=== PATIENT | female | born 1960 | race Caucasian/White ===

== ENCOUNTER → 2020-12-01 10:16 | Outpatient (CLI) | payer OTHER, SELFPAY ==
--- NOTE | ~2020-12-01 | DEXA_ITS ---
Bone Density Report Name: Alondra Nicholson Age: 60 Sex: Female Ethnicity: White Date of : 1960 Indication: postmenopausal; screening for osteoporosis; Referring Provider: DAVID, RAVI Study: Bone densitometry was performed. Exam Date: December 01, 2020 Accession number: [id number] Bone Density: Region BMD T-score Z-score Classification AP Spine (L1-L4) 1.016 -0.3 1.2 Normal Femoral Neck (Left) 0.729 -1.1 0.2 Osteopenia Total Hip (Left) 0.889 -0.4 0.6 Normal Femoral Neck (Right) 0.678 -1.5 -0.2 Osteopenia Total Hip (Right) 0.857 -0.7 0.3 Normal Total Hip Mean 0.873 -0.6 0.5 Normal World Health Organization criteria for BMD impression classify patients as: Normal (T-score at or above -1.0), Osteopenia (T-score between -1.0 and -2.5), or Osteoporosis (T-score at or below -2.5). 10-year Fracture Risk(1): Major Osteoporotic Fracture 7.8% Hip Fracture 0.7% Reported Risk Factors: [place] (), Neck BMD=0.678, BMI=34.5 (1) FRAX(R) Version 3.08. Fracture probability calculated for an untreated patient. Fracture probability may be lower if the patient has received treatment. Clinical Information Provided by Patient: Patient maximum height was 64 Menopause Age: 50 No regular weight bearing exercise Drinks caffeinated beverages Onset of menses at age 12 Number of children 2 Impression: The patient has low bone mass, based on the Right Femoral Neck T-score. The patient has an estimated ten-year risk of hip fracture of 0.7% and an estimated ten-year risk of major fracture of 7.8%, based on the WHO FRAX algorithm. Discussion: BONE DENSITY IS LOW AT ONE OR MORE SKELETAL SITES. This patient's lowest T-score is low at one or more skeletal sites. It meets the World Health Organization's (WHO) criteria for ?low bone mass? (T-score between -1.0 and -2.5). The patient's 10-year risk of fracture as calculated by FRAX is less than the threshold where pharmacological therapy is recommended by the National Osteoporosis Foundation (NOF). However, all treatment decisions require clinical judgment and consideration of individual patient factors, including patient preferences, comorbidities, previous drug use, risk factors not captured in the FRAX model (e.g., frailty, falls, vitamin D deficiency, increased bone turnover, interval significant decline in bone density) and possible under or overestimation of fracture risk by FRAX. The patient should follow a healthful lifestyle (good nutrition with adequate calcium and vitamin D, and appropriate weight-bearing exercise). Follow-Up: Consider repeating this study in 2 to 3 years to reassess this patient's status, or sooner if there is some new clinical indication. Reported by: [facility] on 12/01/2020 10:48:00 AM.
--- NOTE | ~2020-12-01 | MM_ITS ---
EXAMINATION: MM screening jagdish BI w oj HISTORY: Screening mammogram TECHNIQUE: Craniocaudal and mediolateral oblique 3-D tomosynthesis images were obtained and synthetic 2-D images were generated. CAD analysis was submitted and interpreted. COMPARISON: No prior mammogram is available for comparison at this institution. BREAST PARENCHYMAL COMPOSITION: The breasts are almost entirely fatty. FINDINGS: Bilateral benign appearing intramammary lymph nodes. There is no evidence of suspicious mas s, calcification, or architectural distortion to suggest malignancy in either breast. There has been no suspicious interval change. IMPRESSION: 1. No mammographic evidence of malignancy. 2. Recommend routine screening mammography in one year. BI-RADS Category 2: Benign finding(s). Reviewed, dictated and finalized at location A. CTOR OF SUSTAINABLE DESIGN
== END ==
PROVIDERS: Visit Provider Nurse Practitioner
DX: Z12.31 Encounter for screening mammogram for malignant neoplasm of breast (principal); Z78.0 Asymptomatic menopausal state; Z13.820 Encounter for screening for osteoporosis; M85.852 Other specified disorders of bone density and structure, left thigh; M85.851 Other specified disorders of bone density and structure, right thigh
CPT/HCPCS: 77063; 77067; 77080

== ENCOUNTER → 2022-02-08 12:20 | Outpatient (CLI) | payer BC, SELFPAY ==
--- NOTE | ~2022-02-08 | MM_ITS ---
EXAMINATION: MM screening jagdish BI w oj HISTORY: Screening mammogram TECHNIQUE: Craniocaudal and mediolateral oblique 3-D tomosynthesis images were obtained and synthetic 2-D images were generated. CAD analysis was submitted and interpreted. COMPARISON: December 01, 2020 bilateral screening mammogram BREAST PARENCHYMAL COMPOSITION: The breasts are almost entirely fatty. FINDINGS: Bilateral axillary tail benign-appearing chronic lymph nodes. There is no evidence of suspi cious mass, calcification, or architectural distortion to suggest malignancy in either breast. There has been no suspicious interval change. IMPRESSION: 1. No mammographic evidence of malignancy. 2. Recommend routine screening mammography in one year. BI-RADS Category 2: Benign finding(s). Reviewed, dictated and finalized at location D.
== END ==
PROVIDERS: PCP Family Medicine; Visit Provider Nurse Practitioner
DX: Z12.31 Encounter for screening mammogram for malignant neoplasm of breast (principal)
CPT/HCPCS: 77063; 77067

== ENCOUNTER → 2023-03-28 10:29 | Outpatient (CLI) | payer BC, SELFPAY ==
--- NOTE | ~2023-03-28 | MM_ITS ---
EXAMINATION: MM screening jagdish BI w oj HISTORY: Screening mammogram TECHNIQUE: Craniocaudal and mediolateral oblique 3-D tomosynthesis images were obtained and synthetic 2-D images were generated. CAD analysis was submitted and interpreted. COMPARISON: 02/2022, 11/27/2020 bilateral screening mammogram examinations BREAST PARENCHYMAL COMPOSITION: The breasts are almost entirely fatty. FINDINGS: Stable benign-appearing axillary tail and axillary lymph nodes. There is no evidence of angela picious mass, calcification, or architectural distortion to suggest malignancy in either breast. Ther e has been no suspicious interval change. IMPRESSION: 1. No mammographic evidence of malignancy. 2. Recommend routine screening mammography in one year. BI-RADS Category 1: Negative Reviewed, dictated and finalized at location A.
== END ==
PROVIDERS: PCP Family Medicine; Visit Provider Nurse Practitioner
DX: Z12.31 Encounter for screening mammogram for malignant neoplasm of breast (principal)
CPT/HCPCS: 77063; 77067

== ENCOUNTER 2023-09-13 08:14 | Emergency (ER) | payer BC, SELFPAY ==
[2023-09-13 08:27] VITALS: BP 115/95; PULSE 101; RESP 16; TEMP 37.4; O2SAT 100
--- NOTE | 2023-09-13 08:29 | ED.URI ---
HPI - URI/Sore Throat General Chief Complaint: Upper Respiratory Infection Stated Complaint: CHILLS/BODY ACHES/NOT SLEEPING/COUGH/LIGHT HEADED Time Seen by Provider: 09/13/23 08:29 Source: patient and RN notes reviewed Mode of arrival: ambulatory Limitations: no limitations History of Present Illness HPI Narrative: 62 y/o female presented for c/o body aches, fatigue, and cough. Onset yesterday. Reports right ear feels clogged, had some lightheadedness, and decreased appetite. And stated she coughed so forcefully she spit up bile. Took NyQuil yesterday but only slept 2 hours, then up through the night coughing. Denies sob, wheezing, n/v/d/f/c. MD elicited complaint: cough Related Data Home Medications Medication Instructions Recorded Confirmed meloxicam 15 mg tablet 15 mg PO DAILY 02/15/22 09/13/23 terbinafine HCl 250 mg tablet 250 mg PO DAILY 02/21/23 09/13/23 Allergies Allergy/AdvReac Type Severity Reaction Status Date / Time No Known Allergies Allergy Verified 09/13/23 08:27 Review of Systems Review of Systems: CONSTITUTIONAL: Endorses malaise, body aches; denies chills, sweats, fever EYES: Denies visual changes, redness, or discharge ENT: Denies rhinorrhea, congestion, sinus pain, otalgia, sore throat CARDIOVASCULAR: Denies chest pain, palpitations, edema RESPIRATORY: Reports cough, post nasal drainage. 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 & 04/2018 - right knee [place] teeth extracted Family History Family History Father Family history of Alzheimer's disease Social History Social History Smoking status: Never smoker Second hand tobacco smoke exposure: No Alcohol intake: current Alcohol use details: consumes 12 pack of beer weekly Substance use: never Substance use type: does not use Lack of Transportation: No Lack of Food: Never True Current Housing: I Have Housing Concerned About Future Housing: No Difficulty Paying Gas/Electric Bills: No Difficulty Paying for Meds: No Currently Unemployed: No Difficulty w/ Childcare or Family Care: No Living arrangements: with family Gender identity (if verbalized by the patient): Female Sexual Orientation (if Verbalized by the Patient): Straight or Heterosexual Spiritual care concerns: No Agree to blood products: Yes Exam Narrative: GENERAL: well-appearing, nontoxic no acute distress. HEAD: Normocephalic EYES: PERRLA, conjunctivae clear ENT: Mucous membranes moist. TMs pearly cooley with dull light reflex bilaterally; no tragal tenderness. Oropharynx not erythematous without lesions or exudate, no drooling, no hoarseness, no trismus, uvula midline. No tripod positioning, muffled voice, soft palate or pharyngeal wall bulging NECK: Supple. No lymphadenopathy CHEST: Clear to auscultation, breath sounds equal. No wheezing, rhonchi, rales, or stridor. No respiratory distress, speaks in full sentences. HEART: Regular rate and rhythm. No murmur heard. SKIN: Warm, dry, no rash. NEURO: Alert and oriented x3. PSYCH: Normal mood and affect Course Course Emergency Course: Patient is aware of diagnosis, understands and agrees to treatment plan. Anticipatory guidance given. Patient agrees to follow-up as directed and is aware of reasons to seek care at the emergency department. Portions of this record may have been created with voice recognition softwar
== END 2023-09-13 08:57 | disposition home or self-care (01) ==
PROVIDERS: Emergency Provider Nurse Practitioner Family; PCP Family Medicine
DX: B34.9 Viral infection, unspecified (principal); Z20.822 Contact with and (suspected) exposure to COVID-19; E78.5 Hyperlipidemia, unspecified; K21.9 Gastro-esophageal reflux disease without esophagitis; M19.90 Unspecified osteoarthritis, unspecified site
CPT/HCPCS: 87426; 87804; 99213; C9803; G0463

== ENCOUNTER 2023-09-23 08:48 | Inpatient (IN) | payer BC, SELFPAY ==
[2023-09-23] VITALS (22 sets, daily range): BP systolic 139–170; BP diastolic 70–99; PULSE 80–102; RESP 16–20; TEMP 36.8–38.4; O2SAT 92–100
--- NOTE | ~2023-09-23 | XR_ITS ---
EXAMINATION: XR chest 1V portable 09/23/2023 10:38 INDICATION: Fatigue and fever. PROCEDURE: 2 view chest COMPARISON: 12/25/2018 FINDINGS: The lungs are clear. The cardiomediastinal silhouette is within normal limits. There are no pleural effusions. There is no pneumothorax suspected. IMPRESSION: 1: NO ACUTE CARDIOPULMONARY DISEASE. Reviewed, dictated and finalized at location A. LIER MANAGER
--- NOTE | 2023-09-23 09:45 | ED.FEVER ---
HPI - Fever General Chief Complaint: Fever Stated Complaint: fatigue bodyaches,chills and fever on and off 2wk Time Seen by Provider: 09/23/23 09:34 Source: patient Mode of arrival: ambulatory Limitations: no limitations History of Present Illness HPI Narrative: Alondra is a 62-year-old female patient presenting to the ER today with complaints of fatigue, cough, body aches, chills, fever off and on x 10 days. She reports she has seen urgent care and her PCP and diagnosed with viral syndrome. Was given prescription for Tessalon Perles for the cough. Related Data Home Medications Medication Instructions Recorded Confirmed meloxicam 15 mg tablet 15 mg PO DAILY 02/15/22 09/23/23 terbinafine HCl 250 mg tablet 250 mg PO DAILY 02/21/23 09/23/23 liraglutide 3 mg subcut DAILY 09/23/23 09/23/23 Allergies Allergy/AdvReac Type Severity Reaction Status Date / Time No Known Allergies Allergy Verified 09/23/23 16:24 Review of Systems Review of Systems: Pertinent positives per HPI. Patient denies any rash, headache, visual changes, dizziness, shortness of breath, chest pain, palpitations, nausea, vomiting, diarrhea, constipation, abdominal pain, or any urinary issues. 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 Code status: Full code. Smoking status: Never smoker Second hand tobacco smoke exposure: No Alcohol intake: never Alcohol use details: Twelve pack of beer a week. Substance use: never Substance use type: does not use Lack of Transportation: No Lack of Food: Never True Current Housing: I Have Housing Concerned About Future Housing: No Difficulty Paying Gas/Electric Bills: No Difficulty Paying for Meds: No Currently Unemployed: No Education: Don't Know Difficulty w/ Childcare or Family Care: No Living arrangements: with family Spiritual care concerns: No Agree to blood products: Yes Comments At the time of my signature, I reviewed and agree with the nursing past medical, surgical, social, and family history. There is no relevant family history pertinent to the patient complaint. Exam Narrative: General: Well-developed, well nourished, in no apparent distress Head: Normocephalic, atraumatic Eyes: Pupils equally round and reactive to light bilaterally, EOM intact, sclera and conjunctive clear, no discharge, lids normal Ears: TMs intact and clear, ear canals ceruminous, no drainage, grossly hearing normal. Nose: Nares patent, clear nasal discharge, no inflammation, no sinus tenderness. Mouth: Oral pharynx without lesions or masses, good dentition, MM dry. Neck: Supple, trachea midline, no enlargement of anterior or posterior cervical nodes, no thyroid masses or goiter palpable. Cardio: Regular rate and rhythm, s1 and s2 normal, no murmur appreciated. Resp: Clear to auscultation bilaterally, no rhonchi, rales, wheezing or rubs Course Course Emergency Course: Portions of this record may have been created with voice recognition software. Vital Signs Vital signs: Vital Signs Temperature 37.0 C 09/23/23 09:01 Pulse Rate 99 09/23/23 09:01 Respiratory Rate 16 09/23/23 09:01 Blood Pressure 170/97 H 09/23/23 09:01 Pulse Oximetry 98 09/23/23 09:01 Oxygen Delivery Room Air 09/23/23 09:01 Temperature 36.8 C
[2023-09-23 10:17] LABS: Influenza A QL RT-PCR Negative (Negative); Influenza B QL RT-PCR Negative (Negative); RSV RNA, RT-PCR Negative (Negative); SARS-CoV-2 RNA PCR Negative (Negative)
[2023-09-23 10:24] LABS: Basophils Absolute Auto 0.1 K/mm3 (0.0-0.1); Basophils Percent Auto 0.5 % (0.2-1.2); Eosinophils Percent Auto 0.3 % (0-4.4); Hematocrit 32.1 % (37.0-47.0); Hemoglobin 11.2 g/dL (12.0-15.0); Immature Granulocyte Absolute 0.09 K/mm3 (0.00-0.031); Immature Granulocyte Percent A 0.6 % (0-0.5); Lymphocytes Absolute Auto 1.53 K/mm3 (0.9-3.2); Lymphocytes Percent Auto 10.1 % (18.3-44.2); Mean Corpuscular HGB Conc 34.9 g/dl (32-36); Mean Corpuscular Hemoglobin 31.7 pg (26-34); Mean Corpuscular Volume 90.9 fl (80-100); Mean Platelet Volume 8.4 fl (7.4-10.4); Monocytes Absolute Auto 1.4 K/mm3 (0.1-0.6); Monocytes Percent Auto 9.3 % (2.6-8.5); Neutrophils Percent Auto 79.2 % (45.5-73.1); Platelet Count Result 548 k/mm3 (150-375); Red Blood Count 3.53 M/mm3 (4.2-5.4); Red Cell Distribution Width 12.2 % (11.5-14.5); White Blood Count 15.2 K/mm3 (4.5-10.0)
[2023-09-23 10:28] LABS: Appearance Urine Cloudy (Clear); Bacteria Urine 1+ /hpf; Bilirubin Urine Negative (Negative); Blood Urine Trace (Negative); Color Urine Yellow (Yellow); Glucose Urine UA Negative (Negative); Ketones Urine 1+ mg/dL (Negative); Leukocyte Esterase Ur Trace LEU/UL (Negative); Nitrate Urine Negative (Negative); Non Pathogenic Casts 0-2; Protein Urine 1+ mg/dL (Negative); Specific Grav Ur 1.014 (1.001-1.035); Squamous Epithelial Cell Urine Few /hpf (Few); WBC Urine 21-50 /hpf
[2023-09-23 10:33] LABS: Add Urine Microscopic? YES
[2023-09-23 10:36] LABS: Alanine Aminotransferase 19 U/L (6-35); Alkaline Phosphatase 56 U/L (38-126); Anion Gap 8 mmol/L (8-16); Aspartate Amino Transferase 28 U/L (14-36); Bilirubin,Total 0.8 mg/dL (0.2-1.3); Blood Urea Nitrogen 4 mg/dL (7-17); Calcium 8.8 mg/dL (8.4-10.2); Carbon Dioxide 24 mmol/L (22-30); Chloride 91 mmol/L (98-107); Estimated CRCL calculation 98 ml/min; Estimated Glomerular Filt Rate > 60; Glucose 99 mg/dL (65-110); Potassium 3.7 mmol/L (3.4-5.0); Sodium 123 mmol/L (137-145)
[2023-09-23] MEDS: SODIUM CHLORIDE 0.9% IV 1,000 ML 999 ML IV CONT (11:00)
[2023-09-23] MEDS: SODIUM CHLORIDE 0.9% IV 1,000 ML 75 ML IV CONT (12:33)
--- OUTSIDE RECORDS SUMMARY | 2023-09-23 15:45 | XMS_ITS ---
Care Plan - [facility] Created on: September 23, 2023 KASSANDRA RIVERA : 1960 Sex: Female Author Name Unknown Address [address] [place] [address] Phone Organization [facility] Address [address] [place] [address] Phone Care Team Providers Care Family Counselor Name Role Phone RICK DUNCAN MD Unavailable [phone] EULALIO TAMAYO MD Unavailable [phone]
--- OUTSIDE RECORDS SUMMARY | 2023-09-23 15:46 | XMS_ITS | Clinical Summary ---
Author Name Unknown Address [address] [place] [address] Phone Organization [facility] Address [address] [place] [address] Phone Care Team Providers Care Gasser Machine Operator Name Role Phone RICK DUNCAN MD Unavailable [phone] EULALIO TAMAYO MD Unavailable [phone] Reason for Visit and Chief Complaint [Patient Encounter] Problems Includes: Problems addressed during this encounter and other active Problems No Active Problems Plan of Treatment No Plan of Treatment Recorded Assessments Includes: Assessments from this encounter No Assessments Recorded Medical Equipment - Implanted Devices Includes: Current Devices No Medical Equipment Recorded Medications Includes: Medications discussed during this encounter and other current Medications Current Medications (continue as prescribed) SB Acid Police Surgeon raNITIdine 75 MG OR TABS 07/10/2012 Provider: Diagnosis: Medications Administered Includes: Administered Medications from this encounter No Administered Medications Recorded Results Includes: Results discussed during this encounter No Results Recorded For Specified Dates History of Present Illness Includes: History of Present Illness from this encounter No History of Present Illness Recorded Social History No Social History Recorded - Smoking Status Unknown Medical History Includes: Medical History addressed during this encounter No Medical History Recorded Family History Includes: Family History addressed during this encounter No Family His
--- OUTSIDE RECORDS SUMMARY | 2023-09-23 15:46 | XMS_ITS | Clinical Summary ---
Author Name Unknown Address [address] [place] [address] Phone Organization [facility] Address [address] [place] [address] Phone Care Team Providers Care Video Machines Mechanic Name Role Phone RICK DUNCAN MD Unavailable [phone] EULALIO TAMAYO MD Unavailable [phone] Reason for Visit and Chief Complaint gynecologic annual exam - The Chief Complaint is: Annual Problems Includes: Problems addressed during this encounter and other active Problems No Active Problems Plan of Treatment - Follow-up visit 1 year or as needed - Last Documented On 02/09/2016 2:46PM ; [facility] - Clinical summary provided to patient - Last Documented On 02/09/2016 2:46PM ; [facility] Instructions to patient Instructions for patient : B reast Self Exam discussed Last Documented On 6 2:30PM ; [facility] Lose weight Last Documented On 6 2:30PM ; [facility] Colonoscopy Handout given to patient Last Documented On 6 2:30PM ; [facility] Education and Decision Aids were provided during visit for: Patient Education: Daily magui cium and vitamin D Last Documented On 6 2:30PM ; [facility] Patient Education: weight be aring exercise
--- OUTSIDE RECORDS SUMMARY | 2023-09-23 15:46 | XMS_ITS | Clinical Summary ---
Author Name Unknown Address [address] [place] [address] Phone Organization [facility] Address [address] [place] [address] Phone Care Team Providers Care Inspector Electromechanical Name Role Phone RICK DUNCAN MD Unavailable [...] or as needed - Last Documented On 06/03/2018 2:36PM ; [facility] - Clinical summary provided to patient - Last Documented On 06/03/2018 2:36PM ; [facility] - Transition in care, clinical summary provided - Last Documented On 06/03/2018 2:36PM ; [facility] Instructions to patient Instructions for patient : B reast Self Exam discussed Last Documented On 8 2:14PM ; [facility] Lose weight Last Documented On 8 2:15PM ; [facility] Colonoscopy Handout given to patient Last Documented On 8 2:15PM ; [facility] Education and Decision Aids were provided during visit for: Patient Education: Daily magui cium and vitamin D Last Documented On 8 2:14PM ; [facility]
--- OUTSIDE RECORDS SUMMARY | 2023-09-23 15:46 | XMS_ITS | Clinical Summary ---
Author Name Unknown Address [address] [place] [address] Phone Organization [facility] Address [address] [place] [address] Phone Care Team Providers Care Cpr Instructor Name Role Phone RICK DUNCAN MD Unavailable [...] or as needed - Last Documented On 06/04/2019 9:27AM ; [facility] - Clinical summary provided to patient - Last Documented On 06/04/2019 9:27AM ; [facility] Per new ASCCP guidelines, pap was deferred today. This was d/w pt. and pt. is agreeable to this plan. - Last Documented On 06/04/2019 9:27AM ; [facility] Instructions to patient Instructions for patient : B reast Self Exam discussed Last Documented On 9 9:10AM ; [facility] Lose weight Last Documented On 9 9:13AM ; [facility] Colonoscopy Handout given to patient Last Documented On 9 9:13AM ; [facility] Education and Decision Aids were provided during visit for: Patient Education: Daily magui cium and vitamin D Last Documented On 9 9:1
--- OUTSIDE RECORDS SUMMARY | 2023-09-23 15:46 | XMS_ITS | Clinical Summary ---
Author Name Unknown Address [address] [place] [address] Phone Organization [facility] Address [address] [place] [address] Phone Care Team Providers Care Tread Booker Name Role Phone RICK DUNCAN MD Unavailable [phone] EULALIO TAMAYO MD Unavailable [phone] Reason for Visit and Chief Complaint * PHONE CALL Problems Includes: Problems addressed during this encounter and other active Problems No Active Problems Plan of Treatment No Plan of Treatment Recorded Assessments Includes: Assessments from this encounter No Assessments Recorded Medical Equipment - Implanted Devices Includes: Current Devices No Medical Equipment Recorded Medications Includes: Medications discussed during this encounter and other current Medications Current Medications (continue as prescribed) SB Acid Insurance Agent raNITIdine 75 MG OR TABS 07/10/2012 Provider: [...] History addressed during this encounter No Family History Re
--- NOTE | 2023-09-23 16:13 | ADMGEN ---
This patient, Alondra Nicholson, was admitted to [facility] Surg Room 321-01. Patient/family oriented to hospital policies and general routines including ID bracelet, bed and alarms, visiting hours, pain management, procedures, bathroom and other care routines, personal items, smoking policy, room service/diet, and visiting hours. Information on how to activate the Rapid Response Team has been discussed. Patient/Family are encouraged to report perceived risks to care and to ask questions if they do not understand what they are told or what they should do.
--- NOTE | 2023-09-23 17:07 | PM.IMHP ---
H&P: HPI History of Present Illness Date/Time: 09/23/23 18:30 Chief Complaint: Multiple complaints. Narrative: This is a 62-year-old female with gastroesophageal reflux disease and osteoarthritis who presented to the emergency department via private vehicle for evaluation of multiple complaints. The patient provides the following history. She has not been feeling well for upwards of 2 weeks with generalized malaise, fatigue, body aches, chills, dry cough, and intermittent fever. She saw her primary care provider this past Sunday at which time she tested negative for COVID and influenza. She was told that she likely had a virus which would need to run its course. Unfortunately she is not really feeling any better. Her appetite has been good and she denies nausea, vomiting, and diarrhea. She also denies dysuria, urinary urgency, hesitancy, and frequency. No abdominal pain or low back pain. In the ED: She was afebrile on arrival. Blood pressures have been a bit elevated in the 150 systolic. Labs were significant for a WBC count of 15.2, hemoglobin 11.2, sodium 123, chloride 91, BUN 4, creatinine 0.50. Interventions thus far include 1 L normal saline and 1 g ceftriaxone. She is being admitted in this setting for further workup of hyponatremia. With further questioning she does mention that her sodium has been low occasionally throughout the years. She does drink quite a bit of water, upwards of a gal a day she has done so for many years. She has perhaps 6 beers on the weekend but is not a daily drinker. She is not on any diuretics at home. She was recently started back on Saxenda for weight loss but again she reports that she eats and drinks as per usual. Review of Systems Review of Systems: Twelve systems were reviewed and are negative except for as per HPI. 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 Code status: Full code. Smoking status: Never smoker Second hand tobacco smoke exposure: No Alcohol intake: never Alcohol use details: Twelve pack of beer a week. Substance use: never Substance use type: does not use Lack of Transportation: No Lack of Food: Never True Current Housing: I Have Housing Concerned About Future Housing: No Difficulty Paying Gas/Electric Bills: No Difficulty Paying for Meds: No Currently Unemployed: No Education: Don't Know Difficulty w/ Childcare or Family Care: No Living arrangements: with family Spiritual care concerns: No Agree to blood products: Yes Meds Home Medications and Allergies Home Medications Medication Instructions Recorded Confirmed Type meloxicam 15 mg tablet 15 mg PO DAILY 02/15/22 09/23/23 History omeprazole 40 mg capsule,delayed 40 mg PO DAILY #90 caps 08/01/22 09/23/23 Rx release terbinafine HCl 250 mg tablet 250 mg PO DAILY 02/21/23 09/23/23 History pen needle, diabetic 32 gauge x #100 ea 06/28/23 09/23/23 Rx 5/32 (BD Bebe 2nd Gen Pen Needle) benzonatate 200 mg capsule 200 mg PO TID PRN cough #20 caps 09/18/23 09/23/23 Rx liraglutide 3 mg subcut DAILY 09/23/23 09/23/23 History Allergies Allergy/AdvReac Type Severity Reaction Status Date / Time No Known Allergies Allergy Verified 09/23/23 16:24 Vital Signs Vital Signs - 24 hr 09/23/23 09:01 09/23/23 09:30 09/23/23 10:00 Temperat
[2023-09-23 17:57] LABS: Anion Gap 7 mmol/L (8-16); Blood Urea Nitrogen 5 mg/dL (7-17); Calcium 8.6 mg/dL (8.4-10.2); Carbon Dioxide 27 mmol/L (22-30); Chloride 93 mmol/L (98-107); Estimated CRCL calculation 98 ml/min; Estimated Glomerular Filt Rate > 60; Glucose 102 mg/dL (65-110); Magnesium 1.8 mg/dL (1.6-2.3); Potassium 3.3 mmol/L (3.4-5.0); Sodium 127 mmol/L (137-145)
[2023-09-23 18:00] LABS: CRP 8.2 mg/dL (<1.0)
[2023-09-23 18:12] LABS: Procalcitonin 0.1 ng/mL
[2023-09-23] MEDS: ACETAMINOPHEN 325 MG TABLET 650 MG PO (23:09)
--- NOTE | 2023-09-23 23:23 | PC.NURSE ---
urine sample sent to lab for analysis cr, osmolarity, and random NA
[2023-09-23 23:29] LABS: Sodium 125 mmol/L (137-145)
[2023-09-23 23:31] LABS: Creatinine Urine 29.3 mg/dL
[2023-09-23 23:33] LABS: Sodium Urine Random 89 meq/L
[2023-09-24] VITALS (10 sets, daily range): BP systolic 118–158; BP diastolic 79–96; PULSE 76–78; RESP 16–20; TEMP 36.2–37.5; O2SAT 100
[2023-09-24] MEDS: POTASSIUM CHLORIDE 20 MEQ ER TABLET PO (00:10)
[2023-09-24 06:35] LABS: Hemoglobin 10.5 g/dL (12.0-15.0); Mean Corpuscular HGB Conc 33.9 g/dl (32-36); Mean Corpuscular Volume 91.4 fl (80-100); Mean Platelet Volume 8.1 fl (7.4-10.4); Platelet Count Result 504 k/mm3 (150-375); Red Blood Count 3.39 M/mm3 (4.2-5.4); Red Cell Distribution Width 12.2 % (11.5-14.5); White Blood Count 10.3 K/mm3 (4.5-10.0)
[2023-09-24 06:45] LABS: Anion Gap 6 mmol/L (8-16); Blood Urea Nitrogen 3 mg/dL (7-17); Calcium 8.9 mg/dL (8.4-10.2); Carbon Dioxide 26 mmol/L (22-30); Chloride 98 mmol/L (98-107); Estimated CRCL calculation 98 ml/min; Estimated Glomerular Filt Rate > 60; Glucose 97 mg/dL (65-110); Magnesium 1.9 mg/dL (1.6-2.3); Potassium 3.8 mmol/L (3.4-5.0); Sodium 130 mmol/L (137-145)
[2023-09-24] MEDS: ENOXAPARIN 40 MG/0.4 ML SYRINGE SUB-Q (08:35)
[2023-09-24] MEDS: PANTOPRAZOLE 40 MG TABLET PO ×2 (08:35→20:42)
--- NOTE | 2023-09-24 08:39 | PM.IMPN ---
Progress Note: A&P Assessment and Plan (1) Urinary tract infection: Code(s): N39.0 - Urinary tract infection, site not specified Status: Acute Assessment and Plan: 09/24/23: UA revealing 1+ protein, 1+ ketones, 2.0 urine urobilinogen, trace leukocytes, 3-5 urine RBC's, 21-50 urine WBC's, 1+ bacteria Urine and blood cultures were obtained and pending On Rocephin (2) Hyponatremia: Code(s): E87.1 - Hypo-osmolality and hyponatremia Status: Acute Assessment and Plan: 09/24/23: Na+ 130, Chloride 98 1LNS given in the ER Currently on fluid restrictions Urine osmolarity pending Urine sodium 89, urine creatinine 29.3 Patient did state that she drinks 2 beers a day on a regular basis which could contribute to her low Na+ level Continue to trend labs, will check liver enzymes tomorrow. (3) GERD without esophagitis: Code(s): K21.9 - Gastro-esophageal reflux disease without esophagitis Status: Acute Assessment and Plan: 09/24/23: Protonix ordered Time Spent With Patient Time with patient: Greater than 35 minutes Subjective Date/time seen: 09/24/23 08:39 Interval history: This is a 62 year old female who presented to the hospital on 09/23/23 for evaluation of multiple complaints. Patient reports not feeling well for 2 weeks with associated malaise, fatigue, chills, body aches, cough, and fever. She was seen by her PCP this past Sunday and was tested for COVID and influenza which was negative. Her symptoms have not resolved so she presented to the hospital for further evaluation. Work up in the hospital included a chest x-ray which was negative. Labs revealed WBC 15.2, absolute neutrophil count of 12.0, Na+ 123, Chloride 91, BUN 4, Creatinine 0.5, CRP 8.2, TSH 1.34, proCal 0.1. UA revealed 1+ protein, 1+ ketones, 2.0 urine urobili, trace leukocytes, 3-5 urine RBC's, 21-50 urine WBC's, 1+ bacteria. Urine and blood cultures were obtained. She was given 20 meq of KCL, 1L NS, given a dose of Tylenol, and started on Rocephin. On examination today patient is alert and oriented x4, sitting on side of bed with family at the bedside. VSS, she had a T-max of 101.2 over night, she is currently on room air. She denies any urinary complaints, nausea, vomiting, diarrhea, abdominal pain, shortness of breath, or chest pain. Labs today reveal WBC 10.3, hgb 10.5, hct 31.0, Na+ 130, BUN 3, Creatinine 0.50, BG ranging 97-102, mag 1.9. Urine and blood cultures are currently pending. Urine osmolarity pending. Patient did state that she drinks beer on a daily basis. She states that she has two 12oz cans a day. This can contribute to her low Na+. Will check liver studies tomorrow. Review of Systems Review of Systems: Twelve systems were reviewed and are negative except for as per HPI. Constitutional: Constitutional: Reports as per HPI and Reports no additional constitutional complaints Eyes: Eyes: Reports as per HPI and Reports no additional eye complaints ENT: Reports system reviewed and no additional complaints, except as documented and Reports as per HPI Cardiovascular: Cardiovascular: Reports as per HPI and Reports no additional cardiovascular complaints Respiratory: Respiratory: Reports as per HPI and Reports no additional respiratory complaints Gastrointestinal: Gastrointestinal: Reports as per HPI and Reports no additional gastrointestinal complaints Genitourinary: Genitourinary: Reports no additional female genitourinary complaints and Reports as per HPI Musculoskeletal: Musculoskeletal: Reports no additional musculoskeletal complaints and Reports as per HPI Integumentary/Breasts: Skin/Breast: Reports system reviewed and no additional complaints, except as docu and Reports as per HPI Neurologic: Reports system reviewed and no additional complaints, except as documented and Reports as per HPI Psychiatric: Psychiatric: Reports no additional psychiatric complaints and Reports as p
[2023-09-24] MEDS: MELOXICAM 7.5 MG TABLET 15 MG PO (11:14)
[2023-09-25 06:00] VITALS: BP 158/96; PULSE 82; RESP 18; TEMP 36.7; O2SAT 96
[2023-09-25 06:37] LABS: Basophils Absolute Auto 0.1 K/mm3 (0.0-0.1); Eosinophils Percent Auto 0.4 % (0-4.4); Hematocrit 32.9 % (37.0-47.0); Hemoglobin 11.1 g/dL (12.0-15.0); Immature Granulocyte Absolute 0.07 K/mm3 (0.00-0.031); Immature Granulocyte Percent A 0.9 % (0-0.5); Lymphocytes Absolute Auto 2.32 K/mm3 (0.9-3.2); Mean Corpuscular HGB Conc 33.7 g/dl (32-36); Mean Corpuscular Hemoglobin 31.1 pg (26-34); Mean Corpuscular Volume 92.2 fl (80-100); Mean Platelet Volume 8.3 fl (7.4-10.4); Monocytes Absolute Auto 0.8 K/mm3 (0.1-0.6); Monocytes Percent Auto 10.3 % (2.6-8.5); Neutrophils Absolute Auto 4.7 K/mm3 (1.3-6.7); Neutrophils Percent Auto 58.4 % (45.5-73.1); Platelet Count Result 571 k/mm3 (150-375); Red Blood Count 3.57 M/mm3 (4.2-5.4); Red Cell Distribution Width 12.2 % (11.5-14.5)
[2023-09-25 06:48] LABS: Alanine Aminotransferase 24 U/L (6-35); Alkaline Phosphatase 65 U/L (38-126); Anion Gap 7 mmol/L (8-16); Aspartate Amino Transferase 23 U/L (14-36); Bilirubin,Total 0.4 mg/dL (0.2-1.3); Blood Urea Nitrogen 7 mg/dL (7-17); Calcium 9.4 mg/dL (8.4-10.2); Carbon Dioxide 25 mmol/L (22-30); Chloride 98 mmol/L (98-107); Estimated CRCL calculation 83 ml/min; Estimated Glomerular Filt Rate > 60; Glucose 97 mg/dL (65-110); Potassium 3.9 mmol/L (3.4-5.0); Sodium 130 mmol/L (137-145)
[2023-09-25] MEDS: MELOXICAM 7.5 MG TABLET 15 MG PO (07:49)
[2023-09-25] MEDS: PANTOPRAZOLE 40 MG TABLET PO (07:49)
[2023-09-25] MEDS: ENOXAPARIN 40 MG/0.4 ML SYRINGE SUB-Q (07:50)
[2023-09-25 08:00] VITALS: BP 128/70; BP 129/70; BP 129/76; O2SAT 96
[2023-09-25 14:00] VITALS: BP 129/76; PULSE 79; RESP 16; TEMP 36.7; O2SAT 99
--- NOTE | 2023-09-25 14:22 | PM.DS ---
DS: Admitting Diagnosis Discharge Date 09/25/23 Admitting Diagnosis UTI hyponatremia GERD DS: Discharge Diagnosis Discharge Diagnosis (1) Urinary tract infection: Code(s): N39.0 - Urinary tract infection, site not specified Status: Acute (2) Hyponatremia: Code(s): E87.1 - Hypo-osmolality and hyponatremia Status: Acute (3) GERD without esophagitis: Code(s): K21.9 - Gastro-esophageal reflux disease without esophagitis Status: Acute DS: Summary Hospital Course Reason for hospitalization: UTI hyponatremia Hospital Course: This is a 62 year old female who presented to the hospital on 09/23/23 for evaluation of multiple complaints. Patient reports not feeling well for 2 weeks with associated malaise, fatigue, chills, body aches, cough, and fever. She was seen by her PCP this past Sunday and was tested for COVID and influenza which was negative. Her symptoms have not resolved so she presented to the hospital for further evaluation. Work up in the hospital included a chest x-ray which was negative. Labs revealed WBC 15.2, absolute neutrophil count of 12.0, Na+ 123, Chloride 91, BUN 4, Creatinine 0.5, CRP 8.2, TSH 1.34, proCal 0.1. UA revealed 1+ protein, 1+ ketones, 2.0 urine urobili, trace leukocytes, 3-5 urine RBC's, 21-50 urine WBC's, 1+ bacteria.She was given 20 meq of KCL, 1L NS, given a dose of Tylenol, and started on Rocephin. Urine culture showing E. coli in the urine. Sensitivities are back. Rocephin was changed to Cefdinir. On examination today patient is alert and oriented x4, sitting on side of bed. VSS, she is afebrile, currently on room air. Labs showing Na+ level of 130 likely due to alcohol intake, her preference is beer. WBC 8.0 today. She will be discharged on 5 more days of Cefdinir and will need to follow up with PCP in 1 week. Final diagnosis: Urinary tract infection and hyponatremia Status at Discharge Cognitive/behavioral status at discharge: Alert and oriented x3 Functional status at discharge: independent ambulation Overall status at discharge: patient is progressing back to baseline Time Spent with Patient Time attestation: Total time spent providing and/or coordinating discharge services: Time spent: Less than 30 minutes Exam Narrative: General: In no acute distress, well nourished Head: atraumatic, no encephalopathy Eyes: EOMI, PERRLA, sclera clear ENT: moist mucous membranes, nasal passages clear Neck: supple, no JVD, no adenopathy, trachea midline Cardiac: Normal S1 and S2. No murmur, gallops or friction rubs, peripheral pulses intact. Respiratory: Lungs clear to auscultation, no adventitious lung sounds Gastrointestinal: soft, non-distended, non-tender, normoactive bowel sounds. : voiding without difficulty. No symptoms noted. Extremities: moves all extremities well, no edema, good ROM, strength 5/5 Skin: clean, dry, intact. No wounds or lesions. Neuro: Alert and oriented x4, cranial nerves intact, no neuro deficits. Psych: normal mood, normal affect, interactive DS: Data Data Completed and Pending Completed studies during hospitalization: Chest x-ray Pending studies at discharge: Blood cultures x2 showing no growth day 2 Labs on day of discharge: Labs from last 24 hours 09/25/23 06:16 WBC 8.0 RBC 3.57 L Hgb 11.1 L Hct 32.9 L MCV 92.2 MCH 31.1 MCHC 33.7 RDW 12.2 Plt Count 571 H MPV 8.3 Immature Gran % (Auto) 0.9 H Neut % (Auto) 58.4 Lymph % (Auto) 29.0 Kerr % (Auto) 10.3 H Eos % (Auto) 0.4 Baso % (Auto) 1.0 Lymph # (Auto) 2.32 Kerr # (Auto) 0.8 H Eos # (Auto) 0.0 Baso # (Auto) 0.1 Abs Immat Gran (auto) 0.07 H Absolute Neuts (auto) 4.7 Absolute Nucleated RBC 0.0 Nucleated RBC % 0.0 Sodium 130 L Potassium 3.9 Chloride 98 Carbon Dioxide 25 Anion Gap 7 L BUN 7 Creatinine 0.60 L Estim Creat Clear Calc 83 Estimated GFR > 60 Glucose 97 Calcium 9.4 Total Bilirubin 0.4 AST 23 ALT 24
[2023-09-26 13:20] LABS: Osmolality, Urine 238 mOsm/kg (50-1200)
== END 2023-09-25 16:01 | disposition home or self-care (01) | DRG 690 ==
LOC: ANHED 12:05 → ANH3MEDSUR 15:49
PROVIDERS: Emergency Medicine; Physician Assistant; Admitting Provider Internal Medicine; Emergency Provider Nurse Practitioner Family; PCP Family Medicine; Visit Provider Nurse Practitioner Acute Care
DX: N39.0 Urinary tract infection, site not specified (principal); E87.1 Hypo-osmolality and hyponatremia; E78.5 Hyperlipidemia, unspecified; K21.9 Gastro-esophageal reflux disease without esophagitis; R91.1 Solitary pulmonary nodule; B96.20 Unspecified Escherichia coli [E. coli] as the cause of diseases classified elsewhere; Z96.653 Presence of artificial knee joint, bilateral; Z20.822 Contact with and (suspected) exposure to COVID-19
CPT/HCPCS: 36415; 71045; 80048; 80053; 81001; 82570; 83735; 83930; 83935; 84145; 84295; 84300; 84443; 85025; 85027; 86140; 87040; 87077; 87086; 87186; 87637; 96360; 99285; A9270; J0696; J1650; J7030

== ENCOUNTER 2024-02-14 11:11 | Outpatient (CLI) | payer BC, SELFPAY ==
--- NOTE | ~2024-02-14 | XR_ITS ---
EXAMINATION: XR bone survey comp/metastic DATE: 02/14/2024 11:50 INDICATION: Plasma cell disorder. TECHNIQUE: 30 views of a skeletal survey were obtained. COMPARISON: Chest single view 09/23/23 FINDINGS: There is no pneumonia, pleural effusion, or pneumothorax. The heart size is normal. There i s severe cervical, thoracic, and lumbar spondylosis. There are bilateral knee arthroplasties in near- anatomic alignment. IMPRESSION: 1. No evidence of multiple myeloma. Reviewed, dictated and finalized at location A.
== END 2024-02-14 11:12 | disposition home or self-care (01) ==
LOC: ANHIMG 11:12
PROVIDERS: PCP Family Medicine; Visit Provider Internal Medicine Hematology & Oncology
DX: D72.9 Disorder of white blood cells, unspecified (principal)
CPT/HCPCS: 77075

== ENCOUNTER 2024-05-06 13:10 | Outpatient (CLI) | payer BC, SELFPAY ==
--- NOTE | ~2024-05-06 | MM_ITS ---
EXAMINATION: MM screening [facility] BI w oj HISTORY: Screening TECHNIQUE: Craniocaudal and mediolateral oblique 3-D tomosynthesis images were obtained and synthetic 2-D images were generated. CAD analysis was submitted and interpreted. COMPARISON: Comparison to multiple prior studies sequentially, with oldest reviewed study dated 12/01. BREAST PARENCHYMAL COMPOSITION: Not dense: There are scattered areas of fibroglandular density. FINDINGS: There is no evidence of suspicious mass, calcification, or architectural distortion to sugg est malignancy in either breast. There has been no suspicious interval change. IMPRESSION: 1. No mammographic evidence of malignancy. 2. Recommend routine screening mammography in one year. BI-RADS Category 1: Negative Reviewed, dictated and finalized at location B.
== END 2024-05-06 13:11 ==
PROVIDERS: PCP Family Medicine; Visit Provider Nurse Practitioner
DX: Z12.31 Encounter for screening mammogram for malignant neoplasm of breast (principal)
CPT/HCPCS: 77063; 77067

== ENCOUNTER 2025-04-21 11:04 | Outpatient (CLI) | payer OTHER, SELFPAY ==
--- NOTE | ~2025-04-21 | DEXA_ITS ---
Bone Density Report Name: KASSANDRA RIVERA Age: 64 Sex: Female Ethnicity: White Date of : 1960 Indication: postmenopausal; screening for osteoporosis; height loss; Referring Provider: DAVID, RAVI Study: Bone densitometry was performed. Exam Date: April 21, 2025 Accession number: [id number] Bone Density: Region BMD T-score Z-score Classification AP Spine(L1-L4) 1.076 0.3 2.1 Normal Femoral Neck (Left) 0.739 -1.0 0.5 Normal Total Hip (Left) 0.881 -0.5 0.8 Normal Femoral Neck (Right) 0.677 -1.5 0.0 Osteopenia Total Hip (Right) 0.881 -0.5 0.8 Normal Total Hip Mean 0.881 -0.5 0.8 Normal World Health Organization criteria for BMD impression classify patients as: Normal (T-score at or above -1.0), Osteopenia (T-score between -1.0 and -2.5), or Osteoporosis (T-score at or below -2.5). 10-year Fracture Risk(1): Major Osteoporotic Fracture 8.7% Hip Fracture 0.9% Reported Risk Factors: [place] (), Neck BMD=0.677, BMI=31.1 (1) FRAX(R) Version 3.08. Fracture probability calculated for an untreated patient. Fracture probability may be lower if the patient has received treatment. Previous Exams: -- Region Exam Age BMD T-score BMD Change BMD Change Date g/cm2 vs Baseline vs Previous -- AP Spine (L1-L4) 04/21/2025 64 1.076 0.3 5.9%* 5.9%* 12/01/2020 60 1.016 -0.3 Total Hip(Left) 04/21/2025 64 0.881 -0.5 -0.9% -0.9% 12/01/2020 60 0.889 -0.4 Total Hip(Right) 04/21/2025 64 0.881 -0.5 2.8% 2.8% 12/01/2020 60 0.857 -0.7 -- *Denotes significance at 95% confidence level, LSC for AP Spine = 0.022 g/cm2, LSC for Total Hip = 0.027 g/cm2 Clinical Information Provided by Patient: Patient maximum height was 64 Menopause Age: 50 Drinks caffeinated beverages Onset of menses at age 12 Number of children 2 Impression: The patient has low bone mass, based on the Right Femoral Neck T-score. The patient has an estimated ten-year risk of hip fracture of 0.9% and an estimated ten-year risk of major fracture of 8.7%, based on the WHO FRAX algorithm. No significant bone loss was observed. Discussion: BONE DENSITY IS LOW AT ONE OR MORE SKELETAL SITES. This patient's lowest T-score is low at one or more skeletal sites. It meets the World Health Organization's (WHO) criteria for ?low bone mass? (T-score between -1.0 and -2.5). The patient's 10-year risk of fracture as calculated by FRAX is less than the threshold where pharmacological therapy is recommended by the National Osteoporosis Foundation (NOF). However, all treatment decisions require clinical judgment and consideration of individual patient factors, including patient preferences, comorbidities, previous drug use, risk factors not captured in the FRAX model (e.g., frailty, falls, vitamin D deficiency, increased bone turnover, interval significant decline in bone density) and possible under or overestimation of fracture risk by FRAX. The patient should follow a healthful lifestyle (good nutrition with adequate calcium and vitamin D, and appropriate weight-bearing exercise). Follow-Up: Consider repeating this study in 2 to 3 years to reassess this patient's status, or sooner if there is some new clinical indication. Reported by: VICTORINA on 04/21/2025 11:19:00 AM. Reviewed, dictated and finalized at location A.
== END 2025-04-21 11:05 | disposition home or self-care (01) ==
LOC: MICIMG 11:05
PROVIDERS: PCP Family Medicine; Visit Provider Nurse Practitioner
DX: M85.89 Other specified disorders of bone density and structure, multiple sites (principal); Z78.0 Asymptomatic menopausal state; Z13.820 Encounter for screening for osteoporosis
CPT/HCPCS: 77080

== ENCOUNTER 2025-07-30 11:46 | Outpatient (CLI) | payer OTHER, SELFPAY ==
--- NOTE | ~2025-07-30 | MM_ITS ---
EXAMINATION: MM screening [facility] BI w oj HISTORY: Screening TECHNIQUE: Craniocaudal and mediolateral oblique 3-D tomosynthesis images were obtained and synthetic 2-D images were generated. CAD analysis was submitted and interpreted. COMPARISON: Comparison to multiple prior studies sequentially, with oldest reviewed study dated 12/01/2020. BREAST PARENCHYMAL COMPOSITION: Not dense: There are scattered areas of fibroglandular density. FINDINGS: There is no evidence of suspicious mass, calcification, or architectural distortion to suggest malignancy in either breast. There has been no suspicious interval change. IMPRESSION: 1. No mammographic evidence of malignancy. 2. Recommend routine screening mammography in one year. BI-RADS Category 1: Negative Reviewed, dictated and finalized at location O.
== END 2025-07-30 11:47 | disposition home or self-care (01) ==
LOC: MICIMG 11:47
PROVIDERS: PCP Student in an Organized Health Care Education/Training Program; Visit Provider Nurse Practitioner
DX: Z12.31 Encounter for screening mammogram for malignant neoplasm of breast (principal)
CPT/HCPCS: 77063; 77067

== ENCOUNTER 2025-08-18 12:45 | Outpatient (CLI) | payer OTHER, SELFPAY ==
--- OUTSIDE RECORDS SUMMARY | 2025-08-18 12:49 | XMS_ITS | Clinical Summary ---
Author Organization [facility] Address [address] [place] [address] Phone Care Team Providers Care Overhead Worker Name Role Phone RICK DUNCAN MD Unavailable [phone] EULALIO TAMAYO MD Unavailable [phone] Reason for Visit and Chief Complaint gynecologic annual exam - The Chief Complaint is: Annual Problems Includes: Problems addressed during this encounter and other active Problems No Active Problems Plan of Treatment - Follow-up visit 1 year or as needed - Last Documented On 06/04/2019 9:27AM ; [facility] - Clinical summary provided to patient - Last Documented On 06/04/2019 9:27AM ; [facility] Per new ASCCP guidelines, pap was deferred today. This was d/w pt. and pt. is agreeable to this plan. - Last Documented On 06/04/2019 9:27AM ; [facility] Instructions to patient Instructions for patient : B reast Self Exam discussed Last Documented On 9 9:10AM ; [facility] Lose weight Last Documented On 9 9:13AM ; [facility] Colonoscopy Handout given to patient Last Documented On 9 9:13AM ; [facility] Education and Decision Aids were provided during visit for: Patient Education: Daily magui cium and vitamin D Last Documented On 9 9:10AM ; [facility] Patient Education: weight be aring exercise Last Documented On 9 9:10AM ; [facility] Assessments Includes: Assessments from this encounter Findings - NORMAL FEMALE EXAM - Last Documented On 06/04/2019 9:27AM ; [facility] - Screening Malig. Neoplasm Rectum - Last Documented On 06/04/2019 9:27AM ; [facility] Instructions Includes: Instructions from this encounter Instructions to patient Instructions for patient : B reast Self Exam discussed Last Documented On 9 9:10AM ; [facility] Lose weight Last Documented On 9 9:13AM ; [facility] Colonoscopy Handout given to patient Last Documented On 9 9:13AM ; [facility] Education and Decision Aids were provided during visit for: Patient Education: Daily magui cium and vitamin D Last Documented On 9 9:10AM ; [facility] Patient Education: weight be aring exercise Last Documented On 9 9:10AM ; [facility] Medical Equipment - Implanted Devices Includes: Current Devices No Medical Equipment Recorded Medications Includes: Medications discussed during this encounter and other current Medications Current Medications (continue as prescribed) SB Acid Director Report raNITIdine 75 MG OR TABS 07/10/2012 Provider: Diagnosis: Last Documented On 2 9:16AM By SUSIE HURTADO ; [facility] Medications Administered Includes: Administered Medications from this encounter No Administered Medications Recorded Vital Signs Includes: Vital Signs from this encounter Vital Name 06/04/2019 09:15A Blood Pressure Sitting L 110/64 BP Cuff Size Regular Height (in) 64 Weight (lb) 189 Body Mass Index (kg/m2) 32.4 Body Surface Area (m2) 1.9 Last Documented: On 06/04/2019 9:16AM ; [facility] Results Includes: Results discussed during this encounter THINPREP TIS AND HPV mRNA E6/E7 Neolane. Ordered by SUSIE HURTADO on 05/09 Collected: 06/03/2018 Reported: 06/06/20 18 11:48 Last Documented On 8 1:29PM ; [facility] Reviewed by SUSIE LOBO on 06/06/2018; All test results are final unless otherwise noted. COMMENT See Note None Last Documented On 8 1:29PM ; [facility] Note: EXPLANATORY NOTE: The Pap is a scr eening test for cervical cancer. It is not a diagnostic test and is subject to false negative and false positive results. It is most reliable when a satisfactory sample, regularly obtained, is submitted with relevant clinical findings and history, and when the Pap result is evaluated along with historic and current clinical information. HPV mRNA E6/E7 Not Detected (Not Detected) N (Normal) Last Documented On 8 1:29PM ; [facility] Note: This test was performed using the APTIMA HPV Assay ([employer]This assay detects E6/E7 viral messenger RNA (mRNA) from 14high-risk HPV types (16,18,31,33,35,39,45,51,52,56,58,59,66,68). The analytical performance characteristics ofthis assay have been determined by [employer] The modifications have not beencleared or approved by the FDA. This assay hasbeen validated pursuant to the CLIA regulationsand is used for clinical purposes. SOURCE: Cervix, Endocervix N (Normal) Last Documented On 8 1:29PM ; [facility] CLINICAL INFORMATION: Routine exam N (Normal) Last Documented On 8 1:29PM ; [facility] LMP: PM N (Normal) Last Documented On 8 1:29PM ; [facility] PREV. PAP: 2016 N (Normal) Last Documented On 8 1:29PM ; [facility] PREV. BX: NONE N (Normal) Last Documented On 8 1:29PM ; [facility] STATEMENT OF ADEQUACY: Satisfactory for evaluation. Endocervical/transformation zone component present. N (Normal) Last Documented On 8 1:29PM ; [facility] INTERPRETATION/RESULT: Negative for intraepithelial lesion or malignancy. N (Normal) Last Documented On 8 1:29PM ; [facility] COMMENT: This Pap test has been evaluated with computer assisted technology. N (Normal) Last Documented On 8 1:29PM ; [facility] STAPLING MACHINE OPERATOR: NALLELY ROMERO(ASCP) CT screening location: [place] [address] [place] [address] N (Normal) Last Documented On 8 1:29PM ; [facility] History of Present Illness Includes: History of Present Illness from this encounter HPI KASSANDRA WATTLEWORTH is a 58 year old female. - Allergy list reviewed - Medication list reviewed - PRIMARY CARE PROVIDER : Dr Dolan - Medication reconciliation performed - Menopause has occurred Social History Description Last Updated Alcohol use 06/04/2019 Last Documented On 9 9:27AM ; [facility] In monogamous relationship 06/04/2019 Last Documented On 9 9:27AM ; [facility] Not using drugs 06/04/2019 Last Documented On 9 9:27AM ; [facility] Sexually active with 1 partners in the l ast year 06/04/2019 Last Documented On 9 9:27AM ; [facility] Non-smoker 06/04/2019 Last Documented On 9 9:27AM ; [facility] Social history unchanged 06/04/2019 Last Documented On 9 9:27AM ; [facility] Smoking status : Never smoker 06/04/2019 Last Documented On 9 9:27AM ; [facility] Procedures and Surgical History Includes: Procedures from this encounter Procedures Code Diagnosis Performing Provider Service L ocation Service Date low fat diet Last Documented On 9 9:13AM ; [facility] fecal occult blood test was negative 48969 Last Documented On 9 9:10AM ; [facility] Surgical History Last Updated Surgical / procedural history Right knee ~Left Knee 06/04/2019 Last Documented On 9 9:27AM ; [facility] Medical History Includes: Medical History addressed during this encounter Description Last Updated Result: normal 06/04/2019 Last Documented On 9 9:27AM ; [facility] History of complete colonoscopy 5 Dr banks repeat in 5-7years 06/04/2019 Last Documented On 9 9:27AM ; [facility] History of Pap smear done 06/03/201805/09 Last Documented On 9 9:27AM ; [facility] History of screening mammogram was perfo rmed 06/07/2018 06/04/2019 Last Documented On 9 9:27AM ; [facility] Vaginal delivery 06/03/2018 Last Documented On 9 9:08AM ; [facility] No recent change in medical history 05/09 Last Documented On 9 9:08AM ; [facility] Aborta 2 06/03/2018 Last Documented On 9 9:08AM ; [facility] Contraception: vasectomy 06/03/2018 Last Documented On 9 9:08AM ; [facility] 4 06/03/2018 Last Documented On 9 9:08AM ; [facility] History of a DXA of the lateral lumbar s pine was performed 09/13/2014 wnl 06/03/2018 Last Documented On 9 9:08AM ; [facility] Result: normal 06/03/2018 Last Documented On 9 9:08AM ; [facility] Sexually active 09/17/2014 Last Documented On 9 9:08AM ; [facility] LMP: 11/201208/27/2013 Last Documented On 9 9:08AM ; [facility] Partner with vasectomy 07/10/2012 Last Documented On 9 9:08AM ; [facility] Para 2 11/20/2011 Last Documented On 9 9:08AM ; [facility] 2 miscarriage(s) 10/28/2009 Last Documented On 9 9:08AM ; [facility] Family History Includes: Family History addressed during this encounter Description Last Updated Family history unchanged 06/04/2019 Last Documented On 9 9:27AM ; [facility] Spouse name: roshan 07/10/2012 Last Documented On 9 9:08AM ; [facility] Family history of Diabetes 10/28/2009 Last Documented On 9 9:08AM ; [facility] Review of Systems Includes: Review of Systems from this encounter Gastrointestinal: No pelvic pain. Genitourinary: No postmenopausal bleeding. No vaginal discharge. Mental Status Includes: Mental Status from this encounter No Mental Status Recorded Functional Status Includes: Functional Status from this encounter No Functional Status Recorded Physical Exam Includes: Physical Exam from this encounter Allergies Includes: Active Allergies No Known Allergies Encounters Encounter Provider Location Date Check-In Time Check-Out Time Diagnosis ANNUAL EIGHT SECTION BLOWER EXAM SUSIE RBOWER [facility] [employer] 06/04/20 19 9:08AM 9:28AM Screening Malig. Neoplasm Rectum,Normal Female Exam Insurance Includes: Active Insurance Policies Plan Name Member ID Group # Subscriber Relationship Effect mark Dates 1 - [facility] [id number] KASSANDRA RIVERA Self Clinical Notes Includes: Clinical Notes from this encounter No Clinical Notes Recorded
--- OUTSIDE RECORDS SUMMARY | 2025-08-18 12:49 | XMS_ITS | Clinical Summary ---
Author Organization [facility] Jas Knapp Address [address] [place] [address] Care Team Providers Care Pipe Stripper Name Role Phone Princess Collins MD Primary Care Provider [phone] Allergies No known active allergies Medications omeprazole (PriLOSEC) 40 mg Capsule, Delayed Release(E.C.) Take 40 mg by mouth daily. Active meloxicam (MOBIC) 15 mg tablet Take 15 mg by mouth 1 time daily as needed. Using PRN currently Active liraglutide, weight loss, (Saxenda) 3 mg/0.5 mL (18 mg/3 mL) Pen Injector Inject by subcutaneous injection. Active Active Problems No known active problems Encounters Date Type Department Care Team Description 07/29/2025 External Device Data [facility] Provider, Abstract 07/28/2025 External Device Data [facility] Provider, Abstract 06/23/2025 External Device Data [facility] Provider, Abstract from Last 3 Months Family History Medical History Relation Name Comments Diabetes Brother 2 Relation Name Status Comments Brother 1 Alive Brother 2 Alive Daughter 1 Alive Daughter 2 Alive Daughter 3 Alive Father Mother Son Alive Social History Tobacco Use Types Packs/Day Years Used Date Smoking Tobacco: Never Smokeless Tobacco: Never Tobacco Cessation:Counseling Given: Not Answered Alcohol Use Standard Drinks/Week Comments Yes 0 (1 standard drink = 0.6 oz pur e alcohol) occasional Comments Unknown Sex and Gender Information Value Date Recorded Sex Assigned at Not on file Legal Sex Female 2:55 PM CDT Gender Identity Not on file Sexual Orientation Not on file Last Filed Vital Signs Vital Sign Reading Time Taken Comments Blood Pressure 140/90 09/12/2024 9:42 AM FINAL COAT SPRAYER Pulse 69 09/12/2024 9:42 AM FINAL COAT SPRAYER Temperature 36.6 C (97.8 F) 09/12/2024 9:42 AM FINAL COAT SPRAYER Respiratory Rate 16 09/12/2024 9:42 AM FINAL COAT SPRAYER Oxygen Saturation 97% 09/12/2024 9:42 AM FINAL COAT SPRAYER Inhaled Oxygen Concentration - - Weight 79.1 kg (174 lb 6.4 oz) 09/12/2024 9:42 A M FINAL COAT SPR[employer]ER Height 162.6 cm (5' 4) 02/14/2024 10:17 AM CDT Body Mass Index 29.94 02/14/2024 10:17 AM CDT Plan of Treatment Upcoming Encounters Date Type Department Care Team (Late st Contact Info) Description 09/14/2025 11:30 AM FINAL COAT SPRAYER Office Visit [facility] Oncology and H[facility]ology - [place] [address] [facility] [address] [place] [address] Denis Parr MD [address] [place] [address] Health Maintenance Due Date Last Done Comments Pre-Diabetes and Diabetes Screening 1959 DTAP/TDAP/TD VACCINES (1 - Tdap) 1978 COLORECTAL SCREENING 2004 Colorectal Cancer Screening 2004 FIT-DNA Q 3 years 2004 FIT/FOBT Q 1 year 2004 Flex Sig/CT Colonography Q 5 years 2004 PNEUMOCOCCAL VACCINE 50+ YEA RS (1 of 1 - PCV) 2009 ZOSTER VACCINE (1 of 2) 2009 BREAST CANCER SCREENING 07/02/2020 07/02/20 19, 07/02/2019, 06/07/2018, Additional history exists OSTEOPOROSIS SCREENING 2024 INFLUENZA VACCINE (#1) 2025 RSV VACCINE (60+ or ) (1 - 1-dose 75+ series) 2034 Insurance [employer] BLUE ACCESS CHOICE [facility] MCR Care Teams Pipe Stripper Relationship Specialty Start Date End Date Princess Collins MD [address] [place] [phone] PCP - General Family Practice 01/18/24
--- OUTSIDE RECORDS SUMMARY | 2025-08-18 12:49 | XMS_ITS | Data Portability ---
Author Organization [place] [facility], Main Office Address [address] [place] [address] Care Team Providers Care Checking Clerk Name Role Phone ANNY GODFREY Primary Care Provider ANNY GODFREY Referring Provider Assessment Encounter Date Assessment Date Assessment LastModified by Organization Details LastModified Time 08/22/2023 08/22/2023 HPI: 62-year-old female came in today for evaluation of her right shoulder pain. She has been having pain on and off for years. 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 her job requires her to a lot of stress and strain on her arms shoulders moving groceries well she does check it. She has had no definite injury or trauma over the years. She has just noticed that it will get sore at times but nothing severe. I saw her in 2020 concerning this right shoulder. She had normal looking x-rays and good strength. That point her symptoms are overall mild and very tolerable. Patient is on meloxicam 15 mg daily. Physical exam: 62-year-old female alert pleasant. She has active elevation to 150 external rotation to 80 internal rotation is to T12. She has some mild discomfort with external rotation. Subscap lift-off is intact. Negative abdominal compression test. She has moderate weakness with external rotation as well as abduction. Mild pain with strength testing. Mild tenderness over the anterior supraspinatus tendon insertion no AC joint tenderness. No numbness or tingling right arm. 2+ radial pulse. Impression: 62-year-old female who has most likely a large rotator cuff tear given the x-ray findings today as well as the weakness she has on physical exam. Unfortunately this is quite a dramatic change from her physical exam and x-rays from 2020. I discussed the x-ray findings with her as well as the weakness she is having in the arm. I have recommended MRI scan of the shoulder to see whether not he rotator cuff tendon is repairable. She is only 62 and would be best we can get this repaired as it will give her better shoulder for the long run. If the MRI scan shows that this is not repairable than discuss treatment options that point she is only 62 and I do not think at this point she is a candidate for her shoulder. She is not having severe symptoms in the shoulder and we talked about the fact that this may not be repairable and she understands. She feels that it if it is not she is able to live with her symptoms at this point. See her back after the MRI scan. [email or web address] Not available 08/22/2023 09:42:41 09/19/2023 09/19/2023 impression: Patient has chronic massive rotator cuff tear in the right shoulder. I explained to the patient that this is not a repairable tear. We talked about measures that could be taken to make this more comfortable for her and these measures might include cortisone injection and physical therapy can be helpful. She is already taking meloxicam 15 mg daily. I explained that if her symptoms become intolerable and failed to improve with non operative strategies, reverse shoulder arthroplasty is an option at some point in the future. 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 We talked about the option of trying a cortisone shot. Risk of side effects including risk of infection discussed. She wished to try this. After ChloraPrep prep, 20 mg of Kenalog and 4 cc of 0.5% ropivacaine were injected into the right shoulder from a posterior subacromial approach without difficulty. We will order physical therapy for her to optimize the function of the other muscles that support the shoulder and I will see her back in 6 weeks to assess her progress. 30 minutes were spent total care this patient more than half the time spent in [id number] care. [email or web address] Not available 09/23/2023 11:55:41 11/09/2023 11/09/2023 HPI: Patient returns. She had cortisone injection into her right shoulder 6 weeks ago. She has been going to physical therapy. She did take meloxicam initially but has weaned off of the paired this point she is having no symptoms in the right shoulder. Physical exam: Patient is active elevation 150 external rotation 80 internal rotation is to T12. She has no pain with range of motion. There is no swelling or effusion about the shoulder. She does have moderate weakness with external rotation as well as abduction but no pain associated with strength testing impression: 63-year-old female who has a massive rotator cuff tear right shoulder that is not repairable. I encouraged her to continue with home exercise program. She can stop formal physical therapy when she feels that she has progressed to her satisfaction. Cortisone injections can be repeated in the future if she has a flare up. At some point she is most likely going to need a reverse shoulder arthroplasty given her young age. At this point we will see her back as needed. 20 minutes was spent in treatment patient with more than half of this patient's face conversation [email or web address] Not available 11/09/2023 09:10:10 Plan of Treatment Reminders Order Date Submit Date Provider Last Modified By Organization Details Last Modified Time Details Appointments None recorded. Lab None recorded. Referral None recorded. Procedures injection/a spiration joint/bursa (PROC) - in office procedure, administere d by provider 2022 023 [email or web address] In-Office Order, Internal Use Only DO Not Attach Compendium DO Not Attach Compendium, Do Not Delete/merge, [id number] 3 09:38:28 Surgeries None recorded. Imaging XR, shoulder 2022 023 [email or web address] [facility] [place], [facility], [place], [address], 3 08:12:05 Medication Orders Kenalog 10 mg/mL suspension for injection 2022 023 [email or web address] [facility] [id number] [facility], [address] [place], [address], 4 08:55:34 ropivacaine (PF) 5 mg/mL (0.5 %) injection solution 2022 023 [email or web address] [facility], [address] [place], [address], 4 08:55:44 Patient TargetsNo targets recorded. Patient InstructionsNo instructions recorded. Reason for Referral None Reported. Results Created Date Observation Date Name Description Value Unit Range Abnormal Flag Note LastModifiedBy Organization Detail LastModifiedTime 08/17/20 21 XR, shoul radha No observ ation record ed. [id number] [facility] [place] [address], [address], 12/06/2022 19:46:08 08/22/20 23 XR, shoul radha No observ ation record ed. [email or web address] [facility] [place] [address], [address], 08/22/2023 09:39:24 09/05/20 23 09/05/2023 MRI, shoul radha, w/o contr ast No observ ation record ed. [email or web address] [facility] [address], [place], [address], 12/17/2024 11:24:52 Result Notes None recorded. Problems Name Problem SNOMED Code Status Onset Date Resolution Date Notes Provider Name and Address Organization Details Recorded Time Disorder of trunk 317080549 Active Not Available [facility] 3 19:45:33 Radiothera py follow-up 987563636 Active Not Available [facility] 3 19:45:33 Osteoarthr itis 567724664 Active Not Available [facility] 3 19:45:33 Pain of right shoulder joint 8925613568733 9100 Active 2022 JENNIFER Islas, [facility] 3 09:10:19 Partial thickness rotator cuff tear 865180135 Active 2023 JENNIFER Islas, [facility] 4 08:56:38 Problem Notes None recorded. Procedures Surgical History Date Name Laterality Status Provider Name and Address Organization Details Recorded Time total knee replacement completed Not Available [facility] 12/06/2022 19:44:47 Imaging Results None recorded. Procedure Notes None recorded. Medical Equipment None Reported. Allergies No known drug allergies Medications Name Sig Start Date Stop Date Status Note LastModified by Organization Details LastModified Time celecoxib 200 mg capsule 12/01 completed Not Available Not Available Not Available amoxicillin 500 mg capsule 12/01 completed Not Available Not Available Not Available polyethylen e glycol 3350 17 gram oral powder packet 12/01 completed Not Available Not Available Not Available fluconazole 150 mg tablet 12/01 completed Not Available Not Available Not Available benzonatate 200 mg capsule TAKE 1 CAPSULE BY MOUTH THREE TIMES A DAY NEEDED FOR COUGH 11/09 completed Not Available Not Available Not Available ranitidine 300 mg tablet 12/01 completed Not Available Not Available Not Available hydrocodone 5 mg-acetamin ophen 325 mg tablet 08/17 completed Not Available Not Available Not Available meloxicam 15 mg tablet TAKE 1 TABLET BY MOUTH EVERY DAY NEEDED FOR PAIN ONLY 11/09 completed Not Available Not Available Not Available clobetasol 0.05 % topical cream 12/01 completed Not Available Not Available Not Available metronidazo le 500 mg tablet 08/17 completed Not Available Not Available Not Available ciprofloxac in 250 mg tablet TAKE 1 TABLET BY MOUTH EVERY 12 HOURS 11/09 completed Not Available Not Available Not Available ciprofloxac in 500 mg tablet 08/17 completed Not Available Not Available Not Available omeprazole 40 mg capsule,del ayed release TAKE 1 CAPSULE BY MOUTH EVERY DAY active Not Available Not Available No t Available amoxicillin 500 mg tablet take all 4 tablets (2gm) PO 1hr prior to dental procedure active Not Available Not Available No t Available oxycodone-a cetaminophe n 5 mg-325 mg tablet 12/01 completed Not Available Not Available Not Available terbinafine HCl 250 mg tablet TAKE 1 TABLET BY MOUTH EVERY DAY 11/09 completed Not Available Not Available Not Available Kenalog 10 mg/mL suspension for injection in office procedure , administe red by provider 11/09 completed ND: 0003- 0494- 20 Not Available Not Available Not Available tobramycin 0.3 % eye drops INSTILL 2 DROPS INTO THE LEFT EYE EVERY 4 HOURS FOR 5 DAYS 09/19 completed Not Available Not Available Not Available polymyxin B sulfate 10,000 unit-trimet hoprim 1 mg/mL eye drops 08/17 completed Not Available Not Available Not Available cephalexin 500 mg tablet TAKE 1 TABLET BY MOUTH TWICE A DAY FOR 10 DAYS 09/19 completed Not Available Not Available Not Available methylpredn isolone 4 mg tablets in a dose pack 08/17 completed Not Available Not Available Not Available cefdinir 300 mg capsule TAKE 1 CAPSULE BY MOUTH EVERY 12 HOURS 11/09 completed Not Available Not Available Not Available neomycin 3.5 mg/g-polymy melanie B 10,000 unit/g-dexa meth 0.1 % eye oint APPLY TWICE DAILY TO AFFECTED AREA OF RIGHT EYE 09/19 completed Not Available Not Available Not Available ropivacaine (PF) 5 mg/mL (0.5 %) injection solution in office procedure , administe red by provider 11/09 completed [facility] [phone] Not Available Not Available Not Available Saxenda 3 mg/0.5 mL (18 mg/3 mL) subcutaneou s pen injector PLEASE SEE ATTACHED FOR DETAILED DIRECTION S 11/09 completed Not Available Not Available Not Available Shingrix (PF) 50 mcg/0.5 mL intramuscul ar suspension, kit 12/01 completed Not Available Not Available Not Available BD Bebe 2nd Gen Pen Needle 32 gauge x 5/32 USE DIRECTED DAILY 09/19 completed Not Available Not Available Not Available Vitals Date Recorded Body height Provider Name an d Address Organization Details Last Updated DateTime 11/09/2023 160.02 cm JENNIFER Islas - [facility] 11/09/2023 08:55:15 Date Recorded Body mass index (BMI) Body height Body weight Provider Name and Address Organization Details Last Updated DateTime 08/17/2021 36.1 kg/m2 160.02 cm 73346.84 g Not Available Marshall beltrán 12/06/2022 19:45:27 Date Recorded Body height Body mass index (BMI) Body weight Provider Name and Address Organization Details Last Updated DateTime 08/22/2023 160.02 cm 32.8 kg/m2 56130.59 g JENNIFER Islas - [facility] [place] [facility] 08/22/2023 09:15:35 Date Recorded Body height Provider Name an d Address Organization Details Last Updated DateTime 09/19/2023 160.02 cm JENNIFER Islas [place] [facility] 09/19/2023 08:55:03 Social History None recorded. Functional Status Question Answer Note LastModified by Organizat ion Details LastModified Time What is your level of alcohol consumption? Moderate [id number] Information not available 12/06/2022 Mental Status None recorded. Family History Nothing Reported. Medical History Condition Response BLINDNESS N KIDNEY STONES N MRSA N CARPAL TUNNEL SYNDROME N LUNG DISEASE/DISORDER N HISTORY OF DRUG ABUSE N RADIATION / CHEMOTHERAPY N COPD N SPORTS INJURY N ANKLE PAIN N BLOOD DISEASES N SCHIZOPHRENIA N SHINGLES N BOWEL PROBLEMS N SHOULDER PAIN N DEPRESSION (INCLUDING POST ) N STROKE/TIA N KNEE PAIN N ULCERS N BENIGN PROSTATIC HYPERPLASIA N OBESITY N GERD/NAUSEA N ANEURYSM N URINARY/BLADDER/KIDNEY PROBLEMS N CORONARY ARTERY DISEASE (CAD) N ADDICTION CONCERNS N USE OF BLOOD THINNERS N SKIN PROBLEMS N EMPHYSEMA N MUSCLE,JOINT OR BONE PROBLEMS N DVT N STOMACH ULCERS N BLOOD CLOTS N USE OF NSAIDS N CONCUSSION OR SPINAL TRAUMA N NEUROPATHY N AIDS/HIV N FRACTURES N ELBOW PAIN N HYPERTENSION N TOURETTE'S N ANXIETY DISORDER N Metal allergy N BLOOD TRANSFUSION N ANEMIA/BLOOD DISORDER N BIPOLAR DISORDER N BRONCHITIS N OSTEOARTHRITIS N TUBERCULOSIS N FOOT PROBLEM N HEART VALVE DISORDERS N ALLERGIES/HAYFEVER N SOFT TISSUE INJURY N INFECTIOUS DISEASE N HEART ARRHYTHMIA N INSOMNIA N RHEUMATOID ARTHRITIS N HIGH CHOLESTEROL / HYPERLIPIDEMIA N EDEMA N CHRONIC PAIN SYNDROME N CAROTID BLOCKAGE N BACK / NECK PROBLEMS N HAVE YOU BEEN HOSPITALIZED OR SEEN IN [facility] IN THE PAST YEAR ? N BURSITIS N HERNIATED DISC N DIALYSIS N FIBROMYALGIA N OSTEOPOROSIS N ARTHRITIS N NO SIGNIFICANT PAST MEDICAL HISTORY N PERIPHERAL NEUROPATHY N DIABETES, TYPE N HEARTBURN / REFLUX N HEPATITIS / LIVER DISEASE N GOUT N SLEEP DISORDER N ALZHEIMER'S DISEASE N HERPES N SEIZURES/EPILEPSY N HEADACHES/MIGRAINES N VASCULAR DISEASE N HIP PAIN N Blood Disorder N DIZZINESS N HEAD TRAUMA OR INJURY N HEART DISEASE/HEART PROBLEMS N MULTIPLE SCLEROSIS N CARDIAC ARRHYTHMIA N CANCER: SPECIFY N ANESTHESIA COMPLICATIONS N ATRIAL FIBRILLATION N AUTOIMMUNE DISEASE N Gynecological HistoryNo gynecological history recorded. Obstetrics History GPAL:G 0 P 0 0 0 0 Past Encounters Encounter ID Performer Location Encounter Start Date Encounter Closed Date Diagnosis/Indication Diagnosis SNOMED-CT Code Diagnosis ICD10 Code Diagnosis IMO Codes Diagnosis Note [id number] Cristhian Williamson MD [facility] [address] [place] [address] 08/17/2021 00:00:00 08/17/2021 15:50:10 [id number] Cristhian Williamson MD [facility] [address] [place] [address] 08/22/2023 08:46:50 08/22/2023 10:09:45 Pain of right shoulder joint 0788626635 5242657 M25.553 [id number] Cristhian Williamson MD [facility] [place] [address] [place] [address] 09/19/2023 08:45:40 09/24/2023 10:58:36 Pain of right shoulder joint 1791919492 5384886 M25.831 [id number] Cristhian Williamson MD [facility] [place] [address] [place] [address] 11/09/2023 08:52:23 11/09/2023 09:28:14 Partial thickness rotator cuff tear 491041829 M75.101 Health Concerns Section Related Observation LastModified by Organization Detai ls LastModified Time None Recorded Concern Status LastModified by Organization Details LastModified Time None Recorded Advance Directives Directive None Recorded Payers Insurance Date Sequence Insurance Name Policy Number Policy Hollins Covered Member ID Hollins Member ID Guarantor Name 07/24/2023 1 [facility] [id number] Alondra Nicholson [id number] Alondra Nicholson 11/19/2023 1 [place] [id number] Alondra Nicholson [id number] Alondra Nicholson Notes Date Note Type Note Provider Name and Address Organization Details Recorded Time 09/19/2023 text/html Patient returns of her MRI scan of her right shoulder. I reviewed the radiologist's report I reviewed the images with the patient. It shows pronounced atrophy with moderate fatty infiltration in the upper subscapularis as well as the infraspinatus muscle bellies and mild fatty infiltration in the supraspinatus. She has a massive tear the rotator cuff and there is complete superior migration of head relative to the acromion. There is active arthropathy of the acromioclavicular joint noted medial dislocation of long head of the biceps noted large septated joint and bursal effusions are noted. Cristhian Williamson MD [address] [facility], [place] [address], [place], [address], [facility] 09/23/2023 11:55:52 OBGyn Episode No OBEpisode recorded.
--- OUTSIDE RECORDS SUMMARY | 2025-08-18 12:49 | XMS_ITS | Clinical Summary ---
Author Organization [facility] Address [address] [place] [address] Phone Care Team Providers Care Blow Off Worker Name Role Phone RICK DUNCAN MD Unavailable [phone] EULALIO TAMAYO MD Unavailable [phone] Reason for Visit and Chief Complaint gynecologic annual exam - The Chief Complaint is: Annual Problems Includes: Problems addressed during this encounter and other active Problems No Active Problems Plan of Treatment - Follow-up visit 1 year or as needed - Last Documented On 02/09/2016 2:46PM ; [facility] - Clinical summary provided to patient - Last Documented On 02/09/2016 2:46PM ; [facility] Instructions to patient Instructions for patient : B reast Self Exam discussed Last Documented On 6 2:30PM ; [facility] Lose weight Last Documented On 6 2:30PM ; [facility] Colonoscopy Handout given to patient Last Documented On 6 2:30PM ; [facility] Education and Decision Aids were provided during visit for: Patient Education: Daily magui cium and vitamin D Last Documented On 6 2:30PM ; [facility] Patient Education: weight be aring exercise Last Documented On 6 2:30PM ; [facility] Assessments Includes: Assessments from this encounter Findings - NORMAL FEMALE EXAM - Last Documented On 02/09/2016 2:46PM ; [facility] - Screening Malig. Neoplasm Rectum - Last Documented On 02/09/2016 2:46PM ; [facility] Instructions Includes: Instructions from this encounter Instructions to patient Instructions for patient : B reast Self Exam discussed Last Documented On 6 2:30PM ; [facility] Lose weight Last Documented On 6 2:30PM ; [facility] Colonoscopy Handout given to patient Last Documented On 6 2:30PM ; [facility] Education and Decision Aids were provided during visit for: Patient Education: Daily magui cium and vitamin D Last Documented On 6 2:30PM ; [facility] Patient Education: weight be aring exercise Last Documented On 6 2:30PM ; [facility] Medical Equipment - Implanted Devices Includes: Current Devices No Medical Equipment Recorded Medications Includes: Medications discussed during this encounter and other current Medications Current Medications (continue as prescribed) SB Acid Security Alarm Installer raNITIdine 75 MG OR TABS 07/10/2012 Provider: Diagnosis: Last Documented On 2 9:16AM By [facility]IE [facility]OWER [facility] ; [facility] Medications Administered Includes: Administered Medications from this encounter No Administered Medications Recorded Vital Signs Includes: Vital Signs from this encounter Vital Name 02/09/2016 02:28P Blood Pressure Sitting L 118/64 BP Cuff Size Regular Height (in) 64 Weight (lb) 180 Body Mass Index (kg/m2) 30.9 Body Surface Area (m2) 1.9 Last Documented: On 02/09/2016 2:31PM ; [facility] Results Includes: Results discussed during this encounter No Results Recorded For Specified Dates History of Present Illness Includes: History of Present Illness from this encounter VISHNU RIVERA is a 55 year old female. - Medication list reviewed - PRIMARY CARE PROVIDER : Dr Eulalio Espino Social History Description Last Updated Alcohol use occ 02/09/2016 Last Documented On 6 2:46PM ; [facility] In monogamous relationship 02/09/2016 Last Documented On 6 2:46PM ; [facility] Non-smoker 02/09/2016 Last Documented On 6 2:46PM ; [facility] Not using drugs 02/09/2016 Last Documented On 6 2:46PM ; [facility] Sexually active with 1 partners in the l ast year 02/09/2016 Last Documented On 6 2:46PM ; [facility] Social history unchanged 02/09/2016 Last Documented On 6 2:46PM ; [facility] Smoking status : Never smoker 02/09/2016 Last Documented On 6 2:46PM ; [facility] Procedures and Surgical History Includes: Procedures from this encounter Procedures Code Diagnosis Performing Provider Service L ocation Service Date low fat diet Last Documented On 6 2:30PM ; [facility] cervical Pap smear 13150 Last Documented On 6 2:30PM ; [facility] fecal occult blood test was negative 08212 Last Documented On 6 2:30PM ; [facility] normal history of Pap smear of cervix Last Documented On 2:34PM ; [facility] Cervical Pap Smear performed Q0091 Last Documented On 2:30PM ; [facility] Medical History Includes: Medical History addressed during this encounter Description Last Updated Vaginal delivery 02/09/2016 Last Documented On 6 2:46PM ; [facility] No recent change in medical history 01/2016 Last Documented On 6 2:46PM ; [facility] History of a DEXA of the lateral lumbar spine was performed 09/23/2014 wnl 02/09/2016 Last Documented On 6 2:46PM ; [facility] History of complete colonoscopy 2015 At [place] wn repeat in 5 years 02/09/2016 Last Documented On 6 2:46PM ; [facility] Aborta 2 02/09/2016 Last Documented On 6 2:46PM ; [facility] 4 02/09/2016 Last Documented On 6 2:46PM ; [facility] History of Pap smear done 07/10/201201/2016 Last Documented On 6 2:46PM ; [facility] History of screening mammogram was perfo rmed 11/18/2015 02/09/2016 Last Documented On 6 2:46PM ; [facility] Result: normal 02/09/2016 Last Documented On 6 2:46PM ; [facility] Result: normal 02/09/2016 Last Documented On 6 2:46PM ; [facility] Sexually active 09/17/2014 Last Documented On 6 2:27PM ; [facility] LMP: 11/201208/27/2013 Last Documented On 6 2:27PM ; [facility] Partner with vasectomy 07/10/2012 Last Documented On 6 2:27PM ; [facility] Para 2 11/20/2011 Last Documented On 6 2:27PM ; [facility] 2 miscarriage(s) 10/28/2009 Last Documented On 6 2:27PM ; [facility] Family History Includes: Family History addressed during this encounter Description Last Updated Family history unchanged 02/09/2016 Last Documented On 6 2:46PM ; [facility] Spouse name: roshan 07/10/2012 Last Documented On 6 2:27PM ; [facility] Family history of Diabetes 10/28/2009 Last Documented On 6 2:27PM ; [facility] Review of Systems Includes: Review of [...] Date Check-In Time Check-Out Time Diagnosis ANNUAL INSURANCE LOSS ADJUSTER EXAM SUSIE BROWER [facility] SIGN CARPENTER 02/09/20 16 2:25PM 2:49PM Screening Malig. Neoplasm Rectum,Normal Female Exam Insurance Includes: Active Insurance Policies Plan Name Member ID Group # Subscriber Relationship Effect mark Dates 1 - [facility] [id number] KASSANDRA RIVERA Self Clinical Notes Includes: Clinical Notes from this encounter No Clinical Notes Recorded
--- OUTSIDE RECORDS SUMMARY | 2025-08-18 12:49 | XMS_ITS | Clinical Summary ---
Author Organization [facility] Address [facility] [facility] [place] [address] Care Team Providers Care Metal Bumper Name Role Phone Jose Luis Madden MD Primary Care Provider [phone] Aguilar Church MD Unavailable Source Comments [facility],non-owned Affiliates and Associated Physician Practices is amultiple site organization consisting of ambulatory clinics and hospital sitesin [place], [place], [place] and [place]. This disclosure is being madepursuant to the Care Everywhere program and may not contain all information available regarding this patient. Last updated 18.[facility] Appointedd Allergies No known active allergies Medications * Be aware that medications may not be up to date on this document. Alwaysverify current medications with the patient. ranitidine (ZANTAC) 300 MG capsule Take 300 mg by mouth once daily. Active acetaminophen (TYLENOL) 325 MG tablet Take 325 mg by mouth every 4 hours as needed for Fever or Pain Maximum allowable Acetaminophen amount = 4 Grams (4000 mg) / 24 hours. Active Active Problems Problem Noted Date Diagnosed Date Primary osteoarthritis of both knees 03/01/2016 Right knee pain 02/10/2015 Social History Tobacco Use Types Packs/Day Years Used Date Smoking Tobacco: Never Alcohol Use Standard Drinks/Week Comments No 0 (1 standard drink = 0.6 oz pur e alcohol) Comments Unknown Sex and Gender Information Value Date Recorded Sex Assigned at Not on file Legal Sex Female 12:06 PM CDT Gender Identity Not on file Sexual Orientation Not on file Last Filed Vital Signs Vital Sign Reading Time Taken Comments Blood Pressure 152/90 01/31/2017 9:40 AM CDT Pulse 74 01/31/2017 9:40 AM CDT Temperature - - Respiratory Rate 16 01/31/2017 9:40 AM CDT Oxygen Saturation 95% 01/31/2017 9:40 AM CDT Inhaled Oxygen Concentration - - Weight 79.4 kg (175 lb) 11/15/2016 8:13 AM CHEF MANAGER Height 162.6 cm (5' 4) 11/15/2016 8:13 AM CHEF MANAGER Body Mass Index 30.04 11/15/2016 8:13 AM CHEF MANAGER Plan of Treatment Health Maintenance Due Date Last Done Comments BONE DENSITY TESTING 1959 COLOGUARD (AGES 45-75) - COL ON CA SCREENING 1959 COLON MONITORING 1959 COLONOSCOPY - COLON CA SCREENING 1959 CT COLONOGRAPHY - COLON CA SCREENING 1959 Colorectal Cancer Screening 1959 FIT - COLON CA SCREENING 1959 FLEX SIG - COLON CA SCREENING 1959 LIPID TESTING 1959 MAMMOGRAM 1959 HIV SCREENING 1974 HEPATITIS C SCREENING 09/26/1977 DTAP/TDAP/TD VACCINES (1 - Tdap) 1978 PNEUMOCOCCAL VACCINE 50+ (1 of 1 - PCV) 2009 ZOSTER VACCINE (1 of 2) 2009 DEPRESSION SCREENING 10/08/2024 COVID-19 VACCINE (1 - 2023-2 5 season) 2025 INFLUENZA VACCINE (#1) 2025 Respiratory Syncytial Virus (RSV) Vaccine Pt: or over 60 yrs (1 - 1-dose 75+ series) 2034 HEPATITIS B VACCINE Aged Out No longe r eligible based on patient's age to complete this topic HIB VACCINE Aged Out No longer eligi ble based on patient's age to complete this topic HPV VACCINE Aged Out No longer eligi ble based on patient's age to complete this topic MENINGOCOCCAL (Group B) VACC INE SHARED DECISION-MAKING Aged Out No longer eligibl e based on patient's age to complete this topic MENINGOCOCCAL GROUPS A/C/Y/W VACCINE Aged Out No longer eligible b ased on patient's age to complete this topic Insurance [facility] Care Teams Metal Bumper Relationship Specialty Start Date End Date Jose Luis Madden MD [address] [place] [id number] PCP - General Family Medicine 02/10/15 Aguilar Church MD [address] [place] [address] Orthopedic Surgery 02/10/15
--- OUTSIDE RECORDS SUMMARY | 2025-08-18 12:49 | XMS_ITS | Clinical Summary ---
Author Organization [facility] Address [address] [place] [address] Phone Care Team Providers Care Stunner Animal Name Role Phone RICK DUNCAN MD Unavailable [phone] EULALIO TMAAYO MD Unavailable [phone] Reason for Visit and [...] Current Medications (continue as prescribed) SB Acid Help Desk Support raNITIdine 75 MG OR TABS 07/10/2012 Provider: Diagnosis: Last Documented On 2 9:16AM By SUSIE HURTADO ; [facility] Medications Administered Includes: Administered Medications [...] addressed during this encounter No Family History Recorded Review of Systems Includes: Review of Systems from this encounter No Review of Systems Recorded Mental Status Includes: Mental Status from this encounter No Mental Status Recorded Functional Status Includes: Functional Status from this encounter No Functional Status Recorded Physical Exam Includes: Physical Exam from this encounter No Physical Exam Recorded Allergies Includes: Active Allergies No Known Allergies Encounters Encounter Provider Location Date Check-In Time Check-Out Time Diagnosis * PHONE CALL SUSIE HURTADO [facility] WATERWORKS SUPERVISOR 6 9:29AM 11:59PM Insurance Includes: Active Insurance Policies Plan Name Member ID Group # Subscriber Relationship Effect mark Dates 1 - [facility] [id number] KASSANDRA RIVERA Self Clinical Notes Includes: Clinical Notes from this encounter No Clinical Notes Recorded
--- OUTSIDE RECORDS SUMMARY | 2025-08-18 12:49 | XMS_ITS | Clinical Summary ---
Author Organization [facility] Address [address] [place] [address] Phone Care Team Providers Care Stock Handler Floorperson Name Role Phone RICK DUNCAN MD Unavailable [phone] EULAILO TAMAYO MD Unavailable [phone] Reason for Visit and Chief Complaint gynecologic annual exam - The Chief Complaint is: Annual Problems Includes: Problems addressed during this encounter and other active Problems No Active Problems Plan of Treatment - Follow-up visit 1 year or as needed - Last Documented On 06/03/2018 2:36PM ; [facility] - Clinical summary provided to patient - Last Documented On 06/03/2018 2:36PM ; [facility] - Transition in care, clinical summary provided - Last Documented On 06/03/2018 2:36PM ; [facility] Instructions to patient Instructions for patient : B reast Self Exam discussed Last Documented On 8 2:14PM ; [facility] Lose weight Last Documented On 8 2:15PM ; [facility] Colonoscopy Handout given to patient Last Documented On 8 2:15PM ; [facility] Education and Decision Aids were provided during visit for: Patient Education: Daily magui cium and vitamin D Last Documented On 8 2:14PM ; [facility] Patient Education: weight be aring exercise Last Documented On 8 2:14PM ; [facility] Assessments Includes: Assessments from this encounter Findings - NORMAL FEMALE EXAM - Last Documented On 06/03/2018 2:36PM ; [facility] - Screening Malig. Neoplasm Rectum - Last Documented On 06/03/2018 2:36PM ; [facility] Instructions Includes: Instructions from this encounter Instructions to patient Instructions for patient : B reast Self Exam discussed Last Documented On 8 2:14PM ; [facility] Lose weight Last Documented On 8 2:15PM ; [facility] Colonoscopy Handout given to patient Last Documented On 8 2:15PM ; [facility] Education and Decision Aids were provided during visit for: Patient Education: Daily magui cium and vitamin D Last Documented On 8 2:14PM ; [facility] Patient Education: weight be aring exercise Last Documented On 8 2:14PM ; [facility] Medical Equipment - Implanted Devices Includes: Current Devices No Medical Equipment Recorded Medications Includes: Medications discussed during this encounter and other current Medications Discontinued / Stopped on this date on 03/28/2016 Diflucan 150 MG Tablet Provider: Diagnosis: Last Documented On 8 2:17PM By SUSIE HURTADO ; [facility] Current Medications (continue as prescribed) SB Acid Marksmanship Instructor raNITIdine 75 MG OR TABS 07/10/2012 Provider: Diagnosis: Last Documented On 2 9:16AM By SUSIE HURTADO ; [facility] Medications Administered Includes: Administered Medications from this encounter No Administered Medications Recorded Vital Signs Includes: Vital Signs from this encounter Vital Name 06/03/2018 02:20P Blood Pressure Sitting L 110/62 BP Cuff Size Regular Height (in) 64 Weight (lb) 182 Body Mass Index (kg/m2) 31.2 Body Surface Area (m2) 1.9 Last Documented: On 06/03/2018 2:23PM ; [facility] Results Includes: Results discussed during this encounter No Results Recorded For Specified Dates History of Present Illness Includes: History of Present Illness from this encounter VISHNU RIVERA is a 57 year old female. - Medication list reviewed - PRIMARY CARE PROVIDER : Dr Sanches - Menopause has occurred Social History Description Last Updated Alcohol use occ 06/03/2018 Last Documented On 8 2:36PM ; [facility] Non-smoker 06/03/2018 Last Documented On 8 2:36PM ; [facility] Not using drugs 06/03/2018 Last Documented On 8 2:36PM ; [facility] Sexually active with 1 partners in the l ast year 06/03/2018 Last Documented On 8 2:36PM ; [facility] Social history unchanged 06/03/2018 Last Documented On 8 2:36PM ; [facility] Smoking status : Never smoker 06/03/2018 Last Documented On 8 2:36PM ; [facility] The racial background 06/03/2018 Last Documented On 8 2:36PM ; [facility] The racial background is 06/03 Last Documented On 8 2:36PM ; [facility] Procedures and Surgical History Includes: Procedures from this encounter Procedures Code Diagnosis Performing Provider Service L ocation Service Date low fat diet Last Documented On 8 2:15PM ; [facility] fecal occult blood test was negative 88373 Last Documented On 8 2:14PM ; [facility] normal history of Pap smear of cervix Last Documented On 8 2:24PM ; [facility] Cervical Pap Smear performed Q0091 Last Documented On 8 2:15PM ; [facility] Surgical History Last Updated Surgical / procedural history Right knee 06/03/2018 Last Documented On 8 2:36PM ; [facility] Medical History Includes: Medical History addressed during this encounter Description Last Updated Vaginal delivery 06/03/2018 Last Documented On 8 2:36PM ; [facility] No recent change in medical history 05/09 Last Documented On 8 2:36PM ; [facility] Result: normal scheduled 8- at [facility] Last Documented On 8 2:36PM ; [facility] Aborta 2 06/03/2018 Last Documented On 8 2:36PM ; [facility] Contraception: vasectomy 06/03/2018 Last Documented On 8 2:36PM ; [facility] 4 06/03/2018 Last Documented On 8 2:36PM ; [facility] History of a DXA of the lateral lumbar s pine was performed 09/13/2014 wnl 06/03/2018 Last Documented On 8 2:36PM ; [facility] History of complete colonoscopy 2012 Dr banks repeat in 5 years 06/03/2018 Last Documented On 8 2:36PM ; [facility] History of Pap smear done 02/09/201605/09 Last Documented On 8 2:36PM ; [facility] History of screening mammogram was perfo rmed 12/20/2016 06/03/2018 Last Documented On 8 2:36PM ; [facility] Result: normal 06/03/2018 Last Documented On 8 2:36PM ; [facility] Sexually active 09/17/2014 Last Documented On 8 2:18PM ; [facility] LMP: 11/201208/27/2013 Last Documented On 8 2:18PM ; [facility] Partner with vasectomy 07/10/2012 Last Documented On 8 2:18PM ; [facility] Para 2 11/20/2011 Last Documented On 8 2:18PM ; [facility] 2 miscarriage(s) 10/28/2009 Last Documented On 8 2:18PM ; [facility] Family History Includes: Family History addressed during this encounter Description Last Updated Family history unchanged 06/03/2018 Last Documented On 8 2:36PM ; [facility] Spouse name: roshan 07/10/2012 Last Documented On 8 2:18PM ; [facility] Family history of Diabetes 10/28/2009 Last Documented On 8 2:18PM ; [facility] Review of Systems Includes: Review of [...] Date Check-In Time Check-Out Time Diagnosis ANNUAL TECHNICAL SERVICES CONSULTANT EXAM SUSIE BROWER [facility] ASSOCIATE BUSINESS ANALYST 06/03/20 18 2:12PM 2:38PM Screening Malig. Neoplasm Rectum,Normal Female Exam Insurance Includes: Active Insurance Policies Plan Name Member ID Group # Subscriber Relationship Effect mark Dates 1 - [facility] [id number] KASSANDRA RIVERA Self Clinical Notes Includes: Clinical Notes from this encounter No Clinical Notes Recorded
--- OUTSIDE RECORDS SUMMARY | 2025-08-18 12:49 | XMS_ITS | Clinical Summary ---
Author Organization [facility] Address [address] [place] [address] Phone Care Team Providers Care Arts And Sciences Dean Name Role Phone Arely Gonzalez MD Primary Care Provider Social History Tobacco Use Types Packs/Day Years Used Date Smoking Tobacco: Never Assessed Comments No Sex and Gender Information Value Date Recorded Sex Assigned at Not on file Legal Sex Female 12:22 AM CDT Gender Identity Not on file Sexual Orientation Not on file Plan of Treatment Health Maintenance Due Date Last Done Comments Hepatitis C Virus (HCV) Screening 1960 TdaP Immunization 1960 Pap Smear 1980 Cervical Cancer Screening (CCS) 1989 HPV/Cotest 1989 Cologuard 2004 Colonoscopy 2004 Colorectal Cancer Screening 2004 Immunochemical Fecal Occult Blood 2004 Pneumococcal Immunization (50+ years) (1 of 1 - PCV) 2009 Influenza Immunization (#1) 2025 SARS-COV-2 Immunization ( - 2024-26 season) 2025 Respiratory Syncytial Virus (RSV) Immunization (Adult) (1 - 1-dose 75+ series) 2034 Zoster Immunization Completed 04/13/2018, 8 Mammogram Discontinued 07/02/2019, 05/10, 12/20/2016, Additional history exists Hepatitis B Immunization Aged Out No longer eligible based on patient's age to complete this topic Human Papillomavirus (HPV) Immunization Aged Out No longer eligible based on patient's age to complete this topic Meningococcal Immunization (ACWY) Aged Out No longer eligible based on patient's age to complete this topic Rotavirus Immunization Aged Out No lo nger eligible based on patient's age to complete this topic Procedures Procedure Name Priority Date/Time Associated Diagnosis Comments TONY SCREENING BILATERAL DIGITAL W CAD W CYRUS Routine 07/02/2019 9:24 AM CDT Encounter for screening mammogram for malignant neoplasm of breast from Last 3 Months or Most Recently Relevant to Health Maintenance Results * TONY SCREENING BILATERAL DIGITAL W CAD W CYRUS (07/02/2019 9:24 AM CDT) Anatomical Region Laterality Modality breast Bilateral Mammography 07/02/2019 9:00 AM CDT Narrative 07/02/2019 12:39 PM CDT - TONY SCREENING BILATERAL DIGITAL W CAD W CYRUS BILATERAL DIGITAL SCREENING MAMMOGRAM 3D/2D WITH CAD WITH MEDIOLATERAL OBLIQUE CRANIOCAUDAL: 07/02/2019 The study was acquired using digital technology and interpreted from soft copy. Current study was also evaluated with ICAD version 7.2. CLINICAL: Routine screening. Patient has no complaints. No personal history of cancer. No family history of breast cancer. COMPARISONS: Comparison is made to exams dated: 06/07/2018, 12/20/2016, 12/14/2015, and 11/17/2015 [facility]. BREAST TISSUE:There are scattered fibroglandular densities in both breasts. FINDINGS: No significant masses, calcifications, or other findings are seen in either breast. There has been no significant interval change. IMPRESSION: BI-RAD 1 NEGATIVE There is no mammographic evidence of malignancy. A 1 year screening mammogram is recommended. The patient has been or will be contacted. The patient will be entered into a reminder system with a target due date of 1 year for her next screening exam. Electronically signed by: Ana María carvalho/usha:07/02/2019 11:47:57 Healthcare Management: Regla Groves (Jany), [facility] letter sent: Normal Exam Reading location: [facility] BI-RADS: 1 Negative Procedure Note Ana María Marin MD - 07/02/2019 - TONY SCREENING BILATERAL DIGITAL W CAD W CYRUS BILATERAL DIGITAL SCREENING MAMMOGRAM 3D/2D WITH CAD WITH MEDIOLATERAL OBLIQUE CRANIOCAUDAL: 07/02/2019 The study was acquired using digital technology and interpreted from soft copy. Current study was also evaluated with ICAD version 7.2. CLINICAL: Routine screening. Patient has no complaints. No personal history of cancer. No family history of breast cancer. COMPARISONS: Comparison is made to exams dated: 06/07/2018, 12/20/2016, 12/14/2015, and 11/17/2015 [facility]. BREAST TISSUE:There are scattered fibroglandular densities in both breasts. FINDINGS: No significant masses, calcifications, or other findings are seen in either breast. There has been no significant interval change. IMPRESSION: BI-RAD 1 NEGATIVE There is no mammographic evidence of malignancy. A 1 year screening mammogram is recommended. The patient has been or will be contacted. The patient will be entered into a reminder system with a target due date of 1 year for her next screening exam. Electronically signed by: Ana María carvalho/usha:07/02/2019 11:47:57 Healthcare Management: Regla Groves (R), [facility] letter sent: Normal Exam Reading location: [facility] BI-RADS: 1 Negative us Madhuri Mercedes APPLE SORTER, NUMERICAL CONTROL ROUTER OPERATOR IMG MAMMO ORDERABLES Fin al Result from Last 3 Months or Most Recently Relevant to Health Maintenance Care Teams Arts And Sciences Dean Relationship Specialty Start Date End Date Arely Gonzalez MD PCP - General Family Medicine 05/27/18
--- OUTSIDE RECORDS SUMMARY | 2025-08-18 12:49 | XMS_ITS | Clinical Summary ---
Author Organization [facility] Address [address] [place] [address] Phone Care Team Providers Care Director International Name Role Phone RICK DUNCAN MD Unavailable [phone] EULALIO TAMAYO MD Unavailable [phone] Reason for Visit and [...] Current Medications (continue as prescribed) SB Acid Pest Control Worker Helper raNITIdine 75 MG OR TABS 07/10/2012 Provider: Diagnosis: Last Documented On 2 9:16AM By SUSIE HURTADO ; [facility] Medications Administered Includes: Administered [...] Location Date Check-In Time Check-Out Time Diagnosis [Patient Encounter] SUSIE HURTADO 11/18/2015 8:47AM 11:59PM Insurance Includes: Active Insurance Policies Plan Name Member ID Group # Subscriber Relationship Effect mark Dates 1 - [facility] [id number] KASSANDRA RIVERA Self Clinical Notes Includes: Clinical Notes from this encounter No Clinical Notes Recorded
--- OUTSIDE RECORDS SUMMARY | 2025-08-18 12:49 | XMS_ITS ---
Care Plan - [facility] Created on: August 18, 2025 KASSANDRA RIVERA : 1960 Sex: Female Author Organization [facility] Address [address] [place] [address] Phone Care Team Providers Care Dials Inspector Name Role Phone RICK DUNCAN MD Unavailable [phone] EULALIO TAMAYO MD Unavailable [phone]
--- OUTSIDE RECORDS SUMMARY | 2025-08-18 12:49 | XMS_ITS ---
Author Organization [facility] Address [address] [place] [address] Phone Care Team Providers Care Residential Tech Name Role Phone RICK DUNCAN MD Unavailable [phone] EULALIO TAMAYO MD Unavailable [phone] Reason for Referral Date Encounter Description Provider Reason for Referral 09/17/14 ANNUAL PRORATION CLERK EXAM SUSIE BROWER NP-BC Req uest Consultation By Specialist Problems Includes: Active, inactive, and resolved Problems No Active Problems Plan of Treatment Findings Encounter Date Ordered Clinical summary pro vided to patient ANNUAL PRORATION CLERK EXAM with SUSIE BROWER WHNP-BC 06/04/2019 Last Documented On 9 9:27AM ; [facility] Ordered follow-up visit 1 ye ar or as needed ANNUAL PRORATION CLERK EXAM with SUSIE BROWER WHNP-BC 06/04/2019 Last Documented On 9 9:27AM ; [facility] Ordered Clinical summary pro vided to patient ANNUAL PRORATION CLERK EXAM with SUSIE BROWER WHNP-BC 06/03/2018 Last Documented On 8 2:36PM ; [facility] Ordered follow-up visit 1 ye ar or as needed ANNUAL PRORATION CLERK EXAM with SUSIE BROWER WHNP-BC 06/03/2018 Last Documented On 8 2:36PM ; [facility] Ordered Transition in care, clinical summary provided ANNUAL PRORATION CLERK EXAM with SUSIE BROWER WHNP-BC 06/03/2018 Last Documented On 8 2:36PM ; [facility] Ordered Clinical summary pro vided to patient ANNUAL PRORATION CLERK EXAM with SUSIE BROWER WHNP-BC 02/09/2016 Last Documented On 6 2:46PM ; [facility] Ordered follow-up visit 1 ye ar or as needed ANNUAL PRORATION CLERK EXAM with SUSIE BROWER WHNP-BC 02/09/2016 Last Documented On 6 2:46PM ; [facility] Ordered Clinical summary pro vided to patient ANNUAL PRORATION CLERK EXAM with SUSIE BROWER WHNP-BC 09/17/2014 Last Documented On 4 3:55PM ; [facility] Ordered follow-up visit 1 ye ar or as needed ANNUAL PRORATION CLERK EXAM with SUSIE BROWER WHNP-BC 09/17/2014 Last Documented On 4 3:55PM ; [facility] Ordered Transition in care, clinical summary provided ANNUAL PRORATION CLERK EXAM with SUSIE BROWER WHNP-BC 09/17/2014 Last Documented On 4 3:55PM ; [facility] Ordered Clinical summary pro vided to patient ANNUAL PRORATION CLERK EXAM with SUSIE BROWER WHNP-BC 08/27/2013 Last Documented On 3 3:45PM ; [facility] Ordered follow-up visit 1 ye ar or as needed ANNUAL PRORATION CLERK EXAM with SUSIE BROWER WHNP-BC 08/27/2013 Last Documented On 3 3:45PM ; [facility] Ordered Transition in care, clinical summary provided ANNUAL PRORATION CLERK EXAM with SUSIE BROWER WHNP-BC 08/27/2013 Last Documented On 3 3:45PM ; [facility] Ordered Clinical summary pro vided to patient CASING OPERATOR EXAM with SUSIE BROWER WHNP-BC 07/10/2012 Last Documented On 2 9:26AM ; [facility] Ordered follow-up visit 1 ye ar or as needed CASING OPERATOR EXAM with SUSIE BROWER WHNP-BC 07/10/2012 Last Documented On 2 9:26AM ; [facility] Ordered follow-up visit 1 ye ar or as needed CASING OPERATOR EXAM with SUSIE BROWER WHNP-BC 07/05/2011 Last Documented On 1 2:59PM ; [facility] Would like to have derm refe rral for lipoma on upper left thigh. Dr. Carpio's # given. She is agreeable to d/c use of ocp's secondary to age and increased risk factors ( s/p vasectomy). She is to call if heavy menses recur CASING OPERATOR EXAM with SUSIE BROWER [facility] 06/29/2010 Last Documented On 0 10:45AM ; [facility] Ordered follow-up visit 1 ye ar or as needed CASING OPERATOR EXAM with SUSIE BROWER [facility]- 06/29/2010 Last Documented On 0 10:45AM ; [facility] Referrals To Diagnosis Payroll Human Resources Assistant REY BANKS MD SCREEN MAL NE OP-RECTUM Note: Never had screening co lonoscopy! Last Documented On 2 3:58PM ; [facility] Payroll Human Resources Assistant REY BANKS MD SCREEN MAL NE OP-RECTUM Note: 52 yo - never had colo noscopy Last Documented On 3 10:48AM ; [facility] Payroll Human Resources Assistant SUNSHINE MCMAHON MD SCREEN MAL N EOP-RECTUM Last Documented On 5 11:22AM ; [facility] Instructions to patient Instructions for patient : B reast Self Exam discussed Last Documented On 9 9:10AM ; [facility] Lose weight Last Documented On 9 9:13AM ; [facility] Colonoscopy Handout given to patient Last Documented On 9 9:13AM ; [facility] Instructions for patient : B reast Self Exam discussed Last Documented On 8 2:14PM ; [facility] Lose weight Last Documented On 8 2:15PM ; [facility] Colonoscopy Handout given to patient Last Documented On 8 2:15PM ; [facility] Instructions for patient : B reast Self Exam discussed Last Documented On 6 2:30PM ; [facility] Lose weight Last Documented On 6 2:30PM ; [facility] Colonoscopy Handout given to patient Last Documented On 6 2:30PM ; [facility] Instructions for patient : B reast Self Exam discussed Last Documented On 4 3:32PM ; [facility] Colonoscopy Handout given to patient Last Documented On 4 3:33PM ; [facility] Instructions for patient : B reast Self Exam discussed Last Documented On 3 3:25PM ; [facility] Lose weight Last Documented On 3 3:25PM ; [facility] Colonoscopy Handout given to patient Pt. is agreeable to schedule adam Last Documented On 3 3:45PM ; [facility] Instructions for patient : B reast Self Exam discussed Last Documented On 2 9:04AM ; [facility] Lose weight Last Documented On 2 9:04AM ; [facility] Colonoscopy Handout given to patient Alondra will call Dr. Banks for appt. !! Last Documented On 2 9:25AM ; [facility] Instructed to call if excess mark bleeding or abdominal/pelvic pain Last Documented On 1 1:07PM ; [facility] Patient may take Motrin OTC PRN as directed Last Documented On 1 1:07PM ; [facility] Instructions for patient : B reast Self Exam discussed Last Documented On 1 2:43PM ; [facility] Lose weight Last Documented On 1 2:43PM ; [facility] Colonoscopy Handout given to patient Last Documented On 1 2:43PM ; [facility] Instructions for patient : B reast Self Exam discussed Last Documented On 0 10:29AM ; [facility] Lose weight Last Documented On 0 10:30AM ; [facility] Colonoscopy Handout given to patient Last Documented On 0 10:30AM ; [facility] Instructed to call if excess mark bleeding or abdominal/pelvic pain Last Documented On 0 1:41PM ; [facility] Patient may take Motrin OTC PRN as directed Last Documented On 0 1:41PM ; [facility] Education and Decision Aids were provided during visit for: Patient Education: Daily magui cium and vitamin D Last Documented On 9 9:10AM ; [facility] Patient Education: weight be aring exercise Last Documented On 9 9:10AM ; [facility] Patient Education: Daily magui cium and vitamin D Last Documented On 8 2:14PM ; [facility] Patient Education: weight be aring exercise Last Documented On 8 2:14PM ; [facility] Patient Education: Daily magui cium and vitamin D Last Documented On 6 2:30PM ; [facility] Patient Education: weight be aring exercise Last Documented On 6 2:30PM ; [facility] Patient Education: Daily magui cium and vitamin D Last Documented On 4 3:32PM ; [facility] Patient Education: weight be aring exercise Last Documented On 4 3:32PM ; [facility] Patient Education: Daily magui cium and vitamin D Last Documented On 3 3:25PM ; [facility] Patient Education: weight be aring exercise Last Documented On 3 3:25PM ; [facility] Patient Education: Daily magui cium and vitamin D Last Documented On 2 9:04AM ; [facility] Patient Education: weight be aring exercise Last Documented On 2 9:04AM ; [facility] INFORMED CONSENT DISCUSSION: Endometrial biopsy was discussed in detail including discomfort, insufficient specimen with need to repeat test, and rare incidence of uterine perforation. Patient expressed understanding of the above and consented to the procedure Last Documented On 1 1:07PM ; [facility] Patient Education: Daily magui cium and vitamin D Last Documented On 1 2:43PM ; [facility] Patient Education: weight be aring exercise Last Documented On 1 2:43PM ; [facility] Patient Education: Daily magui cium and vitamin D Last Documented On 0 10:29AM ; [facility] Patient Education: weight be aring exercise Last Documented On 0 10:29AM ; [facility] INFORMED CONSENT DISCUSSION: Endometrial biopsy was discussed in detail including discomfort, insufficient specimen with need to repeat test, and rare incidence of uterine perforation. Patient expressed understanding of the above and consented to the procedure Last Documented On 0 1:41PM ; [facility] Assessments Includes: Assessments for all patient encounters Findings Encounter Date NORMAL FEMALE EXAM ANNUAL PRORATION CLERK EXAM with SUSIE BROWER NP-BC 06/04/2019 Last Documented On 9 9:27AM ; [facility] Screening Malig. Neoplasm Rectum ANNUAL PRORATION CLERK EXAM with SUSIE BROWER NP-BC 06/04/2019 Last Documented On 9 9:27AM ; [facility] NORMAL FEMALE EXAM ANNUAL PRORATION CLERK EXAM with SUSIERACHEL BROWER NP-BC 06/03/2018 Last Documented On 8 2:36PM ; [facility] Screening Malig. Neoplasm Rectum ANNUAL PRORATION CLERK EXAM with SUSIE BROWER NP-BC 06/03/2018 Last Documented On 8 2:36PM ; [facility] NORMAL FEMALE EXAM ANNUAL PRORATION CLERK EXAM with SUSIERACHEL BROWER NP-BC 02/09/2016 Last Documented On 6 2:46PM ; [facility] Screening Malig. Neoplasm Rectum ANNUAL PRORATION CLERK EXAM with SUSIE BROWER NP-BC 02/09/2016 Last Documented On 6 2:46PM ; [facility] NORMAL FEMALE EXAM ANNUAL PRORATION CLERK EXAM with SUSIE BROWER NP-BC 09/17/2014 Last Documented On 4 3:55PM ; [facility] Screening Malig. Neoplasm Rectum ANNUAL PRORATION CLERK EXAM with SUSIE BROWER NP-BC 09/17/2014 Last Documented On 4 3:55PM ; [facility] NORMAL FEMALE EXAM ANNUAL PRORATION CLERK EXAM with SUSIE BROWER NP-BC 08/27/2013 Last Documented On 3 3:45PM ; [facility] Screening Malig. Neoplasm Rectum ANNUAL PRORATION CLERK EXAM with SUSIE BROWER NP-BC 08/27/2013 Last Documented On 3 3:45PM ; [facility] NORMAL FEMALE EXAM CASING OPERATOR EXAM with SUSIE BROWER W P-BC 07/10/2012 Last Documented On 2 9:26AM ; [facility] Screening Malig. Neoplasm Rectum CASING OPERATOR EXAM with Jenna Alarcon BROWER NP-BC 07/10/2012 Last Documented On 2 9:26AM ; [facility] Oligomenorrhea CONSULTATION with ILEANA HAYWOOD MD 11/20/2011 Last Documented On 2 3:29PM ; [facility] Ovarian cyst CONSULTATION with ILEANA HAYWOOD MD 11/20/2011 Last Documented On 2 3:29PM ; [facility] Postmenopausal bleeding ENDOMETRIAL BIOPSY with SUSIE BROWER [facility]- 09/13/2011 Last Documented On 1 1:26PM ; [facility] NORMAL FEMALE EXAM CASING OPERATOR EXAM with SUSIE Li [facility]- 07/05/2011 Last Documented On 1 2:59PM ; [facility] Screening Malig. Neoplasm Rectum CASING OPERATOR EXAM with Jenna BROWER [facility]- 07/05/2011 Last Documented On 1 2:59PM ; [facility] NORMAL FEMALE EXAM CASING OPERATOR EXAM with SUSIE Li [facility]- 06/29/2010 Last Documented On 0 10:45AM ; [facility] Screening Malig. Neoplasm Rectum CASING OPERATOR EXAM with Jenna BROWER [facility]- 06/29/2010 Last Documented On 0 10:45AM ; [facility] Menometrorrhagia RECHECK with SSUIE BROWER [facility] - 12/22/2009 Last Documented On 0 1:55PM ; [facility] Instructions Includes: Instructions for all patient encounters Instructions to patient Instructions for patient : B reast Self Exam discussed Last Documented On 9 9:10AM ; [facility] Lose weight Last Documented On 9 9:13AM ; [facility] Colonoscopy Handout given to patient Last Documented On 9 9:13AM ; [facility] Instructions for patient : B reast Self Exam discussed Last Documented On 8 2:14PM ; [facility] Lose weight Last Documented On 8 2:15PM ; [facility] Colonoscopy Handout given to patient Last Documented On 8 2:15PM ; [facility] Instructions for patient : B reast Self Exam discussed Last Documented On 6 2:30PM ; [facility] Lose weight Last Documented On 6 2:30PM ; [facility] Colonoscopy Handout given to patient Last Documented On 6 2:30PM ; [facility] Instructions for patient : B reast Self Exam discussed Last Documented On 4 3:32PM ; [facility] Colonoscopy Handout given to patient Last Documented On 4 3:33PM ; [facility] Instructions for patient : B reast Self Exam discussed Last Documented On 3 3:25PM ; [facility] Lose weight Last Documented On 3 3:25PM ; [facility] Colonoscopy Handout given to patient Pt. is agreeable to schedule adam Last Documented On 3 3:45PM ; [facility] Instructions for patient : B reast Self Exam discussed Last Documented On 2 9:04AM ; [facility] Lose weight Last Documented On 2 9:04AM ; [facility] Colonoscopy Handout given to patient Alondra will call Dr. Banks for appt. !! Last Documented On 2 9:25AM ; [facility] Instructed to call if excess mark bleeding or abdominal/pelvic pain Last Documented On 1 1:07PM ; [facility] Patient may take Motrin OTC PRN as directed Last Documented On 1 1:07PM ; [facility] Instructions for patient : B reast Self Exam discussed Last Documented On 1 2:43PM ; [facility] Lose weight Last Documented On 1 2:43PM ; [facility] Colonoscopy Handout given to patient Last Documented On 1 2:43PM ; [facility] Instructions for patient : B reast Self Exam discussed Last Documented On 0 10:29AM ; [facility] Lose weight Last Documented On 0 10:30AM ; [facility] Colonoscopy Handout given to patient Last Documented On 0 10:30AM ; [facility] Instructed to call if excess mark bleeding or abdominal/pelvic pain Last Documented On 0 1:41PM ; [facility] Patient may take Motrin OTC PRN as directed Last Documented On 0 1:41PM ; [facility] Education and Decision Aids were provided during visit for: Patient Education: Daily magui cium and vitamin D Last Documented On 9 9:10AM ; [facility] Patient Education: weight be aring exercise Last Documented On 9 9:10AM ; [facility] Patient Education: Daily magui cium and vitamin D Last Documented On 8 2:14PM ; [facility] Patient Education: weight be aring exercise Last Documented On 8 2:14PM ; [facility] Patient Education: Daily magui cium and vitamin D Last Documented On 6 2:30PM ; [facility] Patient Education: weight be aring exercise Last Documented On 6 2:30PM ; [facility] Patient Education: Daily magui cium and vitamin D Last Documented On 4 3:32PM ; [facility] Patient Education: weight be aring exercise Last Documented On 4 3:32PM ; [facility] Patient Education: Daily magui cium and vitamin D Last Documented On 3 3:25PM ; [facility] Patient Education: weight be aring exercise Last Documented On 3 3:25PM ; [facility] Patient Education: Daily magui cium and vitamin D Last Documented On 2 9:04AM ; [facility] Patient Education: weight be aring exercise Last Documented On 2 9:04AM ; [facility] INFORMED CONSENT DISCUSSION: Endometrial biopsy was discussed in detail including discomfort, insufficient specimen with need to repeat test, and rare incidence of uterine perforation. Patient expressed understanding of the above and consented to the procedure Last Documented On 1 1:07PM ; [facility] Patient Education: Daily magui cium and vitamin D Last Documented On 1 2:43PM ; [facility] Patient Education: weight be aring exercise Last Documented On 1 2:43PM ; [facility] Patient Education: Daily magui cium and vitamin D Last Documented On 0 10:29AM ; [facility] Patient Education: weight be aring exercise Last Documented On 0 10:29AM ; [facility] INFORMED CONSENT DISCUSSION: Endometrial biopsy was discussed in detail including discomfort, insufficient specimen with need to repeat test, and rare incidence of uterine perforation. 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 Medications Administered Includes: Administered Medications in patient's chart No Administered Medications Recorded Results Includes: Results from 08/18/2024 through 08/18/2025 No Results Recorded For Specified Dates History of Present Illness History of Present Illness not supported for this document type No History of Present Illness Recorded Social History Description Last Updated Alcohol use 06/04/2019 Last Documented On 9 9:27AM ; [facility] In monogamous relationship 06/04/2019 Last Documented On 9 9:27AM ; [facility] Not using drugs 06/04/2019 Last Documented On 9 9:27AM ; [facility] Sexually active with 1 partners in the l ast year 06/04/2019 Last Documented On 9 9:27AM ; [facility] Non-smoker 06/04/2019 Last Documented On 9 9:27AM ; [facility] Social history unchanged 06/04/2019 Last Documented On 9 9:27AM ; [facility] Smoking status : Never smoker 06/04/2019 Last Documented On 9 9:27AM ; [facility] The racial background 06/03/2018 Last Documented On 8 2:36PM ; [facility] The racial background is 06/03 Last Documented On 8 2:36PM ; [facility] Procedures and Surgical History Surgical History Last Updated Surgical / procedural history Right knee ~Left Knee 06/04/2019 Last Documented On 9 9:27AM ; [facility] Medical History Includes: Medical History in patient's chart Description Last Updated Result: normal 06/04/2019 Last Documented On 9 9:27AM ; [facility] History of complete colonoscopy 5 Dr banks repeat in 5-7years 06/04/2019 Last Documented On 9 9:27AM ; [facility] History of Pap smear done 06/03/201805/09 Last Documented On 9 9:27AM ; [facility] History of screening mammogram was perfo rmed 06/07/2018 06/04/2019 Last Documented On 9 9:27AM ; [facility] Vaginal delivery 06/03/2018 Last Documented On 8 2:36PM ; [facility] No recent change in medical history 05/09 Last Documented On 8 2:36PM ; [facility] Aborta 2 06/03/2018 Last Documented On 8 2:36PM ; [facility] Contraception: vasectomy 06/03/2018 Last Documented On 8 2:36PM ; [facility] 4 06/03/2018 Last Documented On 8 2:36PM ; [facility] History of a DXA of the lateral lumbar s pine was performed 09/13/2014 wnl 06/03/2018 Last Documented On 8 2:36PM ; [facility] Result: normal 06/03/2018 Last Documented On 8 2:36PM ; [facility] Sexually active 09/17/2014 Last Documented On 4 3:55PM ; [facility] LMP: 11/201208/27/2013 Last Documented On 3 3:45PM ; [facility] Partner with vasectomy 07/10/2012 Last Documented On 2 9:26AM ; [facility] Para 2 11/20/2011 Last Documented On 2 3:29PM ; [facility] 2 miscarriage(s) 10/28/2009 Last Documented On 0 11:19AM ; [facility] Family History Includes: Family History in patient's chart Description Last Updated Family history unchanged 06/04/2019 Last Documented On 9 9:27AM ; [facility] Spouse name: roshan 07/10/2012 Last Documented On 2 9:26AM ; [facility] Family history of Diabetes 10/28/2009 Last Documented On 0 11:19AM ; [facility] Review of Systems Review of Systems not supported for this document type No Review of Systems Recorded Mental Status No Mental Status Recorded Functional Status No Functional Status Recorded Physical Exam Physical Exam not supported for this document type No Physical Exam Recorded Allergies Includes: Active, inactive, and resolved Allergies No Known Allergies Insurance Includes: Active Insurance Policies Plan Name Member ID Group # Subscriber Relationship Effect mark Dates - [facility] [id number] ALONDRA Balderas Clinical Notes Includes: Signed Clinical Notes starting from 10/27/2022 No Clinical Notes Recorded
--- NOTE | 2025-08-18 12:51 | ECHO_ITS ---
Patient Info Name: Alondra Nicholson Age: 64 years : 1960 Gender: Female Ht: 64 in Wt: 179 lbs BSA: 1.94 m2 HR: 76 bpm BP: 159 / 94 mmHg Heart Rhythm: Sinus Rhythm Technical Quality: Good Exam Date: 08/18/2025 12:53 PM Patient Status: O Admit Date: 08/18/2025 Exam Type: CA echo doppler color flow Complete two-dimensional, color flow and Doppler transthoracic echocardiogram is performed. Manager Athletics: Kim Hahn Attending Provider: Lynn Perkins Summary 1. Complete two-dimensional, color flow and Doppler transthoracic echocardiogram is performed. 2. Left ventricular chamber dimension is normal. 3. Left ventricular systolic function is normal, estimated at 60-65. 4. There is mild concentric increased left ventricular wall thickness. 5. The left ventricular diastolic function is grade I diastolic dysfunction. 6. E/e' 11 is mildly elevated. 7. Left atrial chamber dimension is mildly enlarged. 8. There is mild aortic valve sclerosis. 9. There is mild aortic valve regurgitation. 10. There is trace mitral valve regurgitation. 11. There is trace tricuspid valve regurgitation. 12. No pulmonary hypertension, estimated pulmonary arterial systolic pressure is 27 mmHg. Left Ventricle E/e' 11 is mildly elevated. Left ventricular chamber dimension is normal. Left ventricular systolic function is normal, estimated at 60-65. There is mild concentric increased left ventricular wall thickness. The left ventricular diastolic function is grade I diastolic dysfunction. Right Ventricle Right ventricular chamber dimension is normal. Right ventricular systolic function is normal and with normal TAPSE 2.4 cm. Left Atria Left atrial chamber dimension is mildly enlarged. Right Atria Right atrial chamber dimension is normal. Aortic Valve The aortic valve is trileaflet. There is mild aortic valve sclerosis. There is no aortic valve stenosis. There is mild aortic valve regurgitation. Pulmonic Valve There is no pulmonic regurgitation. Mitral Valve There is no mitral valve stenosis. There is trace mitral valve regurgitation. Tricuspid Valve There is trace tricuspid valve regurgitation. No pulmonary hypertension, estimated pulmonary arterial systolic pressure is 27 mmHg. Pericardium/Pleural There is no pericardial effusion. Inferior Vena Cava Normal inferior vena cava with >50% collapse upon inspiration consistent with normal right atrial pressure, 5 mmHg. Aorta The aortic root size at the sinus of Valsalva is normal. Left Ventricular Outflow Tract Name Value Normal LVOT 2D LVOT Diameter 2.0 cm LVOT Doppler LVOT Peak Velocity 137 cm/s LVOT Peak Gradient 8 mmHg LVOT Mean Gradient 4 mmHg LVOT VTI 26 cm LVOT VTI/AV VTI Ratio 0.6 LVOT Stroke Volume 84 ml LVOT CO 6.1 l/min LVOT CI 3.1 l/min/m2 Pulmonic Valve Name Value Normal RVOT Doppler RVOT Peak Velocity 100 cm/s RVOT Peak Gradient 4 mmHg PV Doppler PV Peak Velocity 131 cm/s PV Peak Gradient 7 mmHg Mitral Valve Name Value Normal MV Diastolic Function MV E Peak Velocity 93 cm/s MV A Peak Velocity 112 cm/s MV E/A 0.8 MV Decel Time (PW) 231 ms MV Annular TDI MV E/e' (Septal) 12.4 MV E/e' (Lateral) 11.4 MV E/e' (Average) 11.9 Tricuspid Valve Name Value Normal TV Regurgitation Doppler TR Peak Velocity 235 cm/s TR Peak Gradient 20 mmHg Estimated PAP/RSVP RA Pressure 5 mmHg <=5 PA Systolic Pressure 27 mmHg <36 RV Systolic Pressure 27 mmHg <36 TV Annular TDI TV Lateral Misty s' Velocity 15.8 cm/s >=9.5 Aorta Name Value Normal Ascending Aorta Ao Root Diameter (MM) 2.6 cm Ao Root Diam Index (MM) 1.3 cm/m2 Aortic Valve Name Value Normal AV Doppler AV Peak Velocity 253 cm/s AV Peak Gradient 26 mmHg AV Mean Gradient 12 mmHg AV VTI 45 cm AV Area (Cont Eq VTI) 1.9 cm2 >=3.0 AV Area (Cont Eq Yousuf) 1.8 cm2 AV DI (Yousuf) 0.54 AV Regurgitation 2D LVOT Area 3.3 cm2 Ventricles Name Value Normal LV Dimensions 2D/MM IVS Diastolic Thickness (2D) 1.1 cm 0.6-1.0 LVID Diastole (2D) 5.1 cm 3.8-5.2 LVIW Diastolic Thickness (2D) 1.0 cm 0.6-0.9 LVID Systole (2D) 3.3 cm 2.2-3.5 LVOT Diameter 2.0 cm LV Mass (2D Cubed) 206.67 g 67.00-162.00 LV Mass Index (2D Cubed) 106 g/m2 43-95 Relative Wall Thickness (2D) 0.39 <=0.42 LV Fractional Shortening/Ejection Fraction 2D/MM LV Fractional Shortening (2D) 36 % 27-45 LV EF (2D Teichholz) 65 % LV Diastolic Volume (4C MOD) 114 ml LV EF (4C MOD) 56 % LV Diastolic Volume (2C MOD) 107 ml LV EF (2C MOD) 60 % LV Diastolic Volume (BP MOD) 112 ml 46-106 LV Diastolic Volume Index (BP MOD) 58 ml/m2 29-61 LV Systolic Volume (BP MOD) 48 ml 14-42 LV Systolic Volume Index (BP MOD) 25 ml/m2 8-24 LV EF (BP MOD) 58 % 54-74 LV Diastolic Length (4C) 8.5 cm LV Systolic Length (4C) 7.2 cm LV Stroke Volume (4C MOD) 63 ml Atria Name Value Normal LA Dimensions LA Dimension (MM) 4.0 cm 2.7-3.8 LA Volume (4C A-L) 71 ml LA Volume (BP A-L) 85 ml RA Dimensions RA Systolic Major Friendship Length (4C) 4.9 cm 2.2-2.8 RA Area (4C) 13.7 cm2 <=18.0 Report Signatures
== END 2025-08-18 12:46 | disposition home or self-care (01) ==
PROVIDERS: PCP Family Medicine Adolescent Medicine; Visit Provider Student in an Organized Health Care Education/Training Program
DX: I10 Essential (primary) hypertension (principal); I35.1 Nonrheumatic aortic (valve) insufficiency
CPT/HCPCS: 93306